=== PATIENT | male | born 1965 | race Caucasian/White ===

== ENCOUNTER 2017-12-17 16:21 | Emergency (ER) | payer OTHER ==
--- NOTE | 2017-12-17 17:21 | ED ---
Extremity Problem HPI - General Chief complaint: Extremity Problem,Nontraumatic Stated complaint: elbow pain Time Seen by Provider: 12/17/17 16:57 Source: patient Mode of arrival: ambulatory Limitations: no limitations - History of Present Illness Initial comments: Patient is a 51-year-old male presents with chief complaint of right elbow pain. The patient states that 2 days ago he was diagnosed with cellulitis of the elbow and was started on Augmentin. Patient states that over the last 2 days the affected area has gotten bigger. The patient denies any pain with moving his elbow. The patient cannot identify any inciting incident to cause a cellulitis, there are no aggravating or alleviating factors. Timing is constant. The patient denies any fever or chills. 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 - Related Data Home Medications Medication Instructions Recorded Confirmed Amoxicillin/Potassium Clav 1 tab PO Q12HR 12/17/17 12/17/17 [Augmentin 875-125 Tablet] Previous Rx's Medication Instructions Recorded Sulfamethox-Tmp 800-160Mg [Bactrim 1 tab PO Q12HR 7 Days #14 tab 12/17/17 DS 800-160 mg] Allergies Allergy/AdvReac Type Severity Reaction Status Date / Time Penicillins Allergy Rash/Hives Verified 12/17/17 17:48 Review of Systems ROS Statement: Those systems with pertinent positive or pertinent negative responses have been documented in the HPI. ROS Other: All systems not noted in ROS Statement are negative. Musculoskeletal: Reports: arthralgia Past Medical History Past Medical History: No Reported History History of Any Multi-Drug Resistant Organisms: None Reported Additional Past Surgical History / Comment(s): rt hand finger amput Past Psychological History: No Psychological Hx Reported Smoking Status: Never smoker Past Alcohol Use History: Occasional Past Drug Use History: None Reported General Exam Limitations: no limitations General appearance: alert, in no apparent distress Head exam: Present: atraumatic, normocephalic Eye exam: Present: normal appearance ENT exam: Present: normal exam Neck exam: Present: normal inspection Respiratory exam: Present: normal lung sounds bilaterally. Absent: respiratory distress, wheezes Cardiovascular Exam: Present: regular rate, normal rhythm GI/Abdominal exam: Present: soft. Absent: distended, tenderness Rectal exam: Present: deferred Extremities exam: Present: other (patient has cellulitis overlying the right elbow. there is no obvious effusion of the elbow, patient is able to move the elbow without pain. ) Back exam: Present: normal inspection Neurological exam: Present: alert, oriented X3 Psychiatric exam: Present: normal affect, normal mood Skin exam: Present: warm, dry, intact Course Vital Signs 12/17/17 16:29 Temperature 97.6 F Pulse Rate 78 Respiratory 18 Rate Blood Pressure 153/89 O2 Sat by Pulse 97 Oximetry Medical Decision Making - Medical Decision Making Patient presents with a chief complaint of cellulitis of the right elbow. On initial evaluation, vital signs are stable, patient is in no acute distress. Patient currently on augmentin for 2 days, I believe this antibiotic to be inadequate to treat his cellulitis given that it does not have resistent staph coverage. Patient was given a dose of vancomycin in the emergency department. I had a very lengthy discussion with the patient regarding treatment options, admission for IV antibiotics vs. changing his current antibiotic to something with broader coverage. at this time, the patient has full range of motion of his elbow, he is able to bare weight on his elbow, and there are no exam findings to provoke concern for septic arthritis. shared decision making was used to determine changing the antibiotic to bactrim BID for 7 days. I expressed to the patient that if the cellulitic area does not improve and progresses past the demarcation line drawn around the cellulitis, he needs to return to the ED immediately for elevation of care. the patient verbalizes understanding and states that he will be re-evaluated in 24-48 hours, sooner if symptoms progress. Patient agreeable with care plan. - Lab Data Result diagrams: 12/17/17 18:30 Lab Results 12/17/17 Range/Units 18:30 WBC 10.3 (3.8-10.6) k/uL RBC 5.32 (4.30-5.90) m/uL Hgb 15.2 (13.0-17.5) gm/dL Hct 43.6 (39.0-53.0) % MCV 82.1 (80.0-100.0) fL MCH 28.6 (25.0-35.0) pg MCHC 34.9 (31.0-37.0) g/dL RDW 14.6 (11.5-15.5) % Plt Count 212 (150-450) k/uL Neutrophils % 68 % Lymphocytes % 22 % Monocytes % 6 % Eosinophils % 3 % Basophils % 1 % Neutrophils # 7.0 (1.3-7.7) k/uL Lymphocytes # 2.2 (1.0-4.8) k/uL Monocytes # 0.6 (0-1.0) k/uL Eosinophils # 0.3 (0-0.7) k/uL Basophils # 0.1 (0-0.2) k/uL Disposition Clinical Impression: Cellulitis of elbow Disposition: HOME SELF-CARE Condition: Good Instructions: Cellulitis (ED) Prescriptions: Sulfamethox-Tmp 800-160Mg [Bactrim DS 800-160 mg] 1 tab PO Q12HR 7 Days #14 tab Is patient prescribed a controlled substance at d/c from ED?: No Referrals: Levon Martinez DO [Primary Care Provider] - 1-2 days
[2017-12-17] MEDS ORDERED: VANCOMYCIN 1,750 MG in SODIUM CHLORIDE 0.9% 250 ML IVPB ONE (17:30)
[2017-12-17 18:41] LABS: Basophils # (A) 0.1 k/uL (0-0.2); Basophils % (A) 1 %; Eosinophils # (A) 0.3 k/uL (0-0.7); Eosinophils % (A) 3 %; HCT 43.6 % (39.0-53.0); HGB 15.2 gm/dL (13.0-17.5); Lymphocytes # (A) 2.2 k/uL (1.0-4.8); Lymphocytes % (A) 22 %; MCH 28.6 pg (25.0-35.0); MCHC 34.9 g/dL (31.0-37.0); MCV 82.1 fL (80.0-100.0); Mean Platelet Volume 7.1; Monocytes # (A) 0.6 k/uL (0-1.0); Monocytes % (A) 6 %; Neutrophils % (A) 68 %; Platelet Count 212 k/uL (150-450); RBC 5.32 m/uL (4.30-5.90); RDW 14.6 % (11.5-15.5); WBC 10.3 k/uL (3.8-10.6)
[2017-12-17 18:49] LABS: Anion Gap 12 mmol/L; Blood Urea Nitrogen 17 mg/dL (9-20); Calcium 9.5 mg/dL (8.4-10.2); Carbon Dioxide 25 mmol/L (22-30); Chloride 105 mmol/L (98-107); Glucose 89 mg/dL (74-99); Potassium 4.2 mmol/L (3.5-5.1); Sodium 142 mmol/L (137-145)
[2017-12-17 20:42] VITALS: PULSE 73; RESP 14; TEMP 97.8
[2017-12-17 20:44] VITALS: BP 167/92
== END 2017-12-17 20:45 | disposition home or self-care (01) ==
LOC: EC 16:21
DX: L03.113 Cellulitis of right upper limb (principal); Z88.0 Allergy status to penicillin
CPT/HCPCS: 99283; 96365; 96366; 36415; 80048; 85025; 87040; J3370

== ENCOUNTER 2019-05-21 16:36 | Emergency (ER) | payer OTHER ==
[2019-05-21 16:48] VITALS: BP 152/83; PULSE 67; RESP 20; TEMP 97.8
[2019-05-21] MEDS ORDERED: PROPARACAINE 0.5% OPHTH DROPS 15 ML BTL RIGHT EYE STA (17:02)
--- NOTE | 2019-05-21 17:07 | ED ---
Eye Problem HPI - General Chief complaint: Eye Problems Stated complaint: [facility] - foreign body rt eye Time Seen by Provider: 05/21/19 16:52 Source: patient Mode of arrival: ambulatory Limitations: no limitations - History of Present Illness Initial comments: Patient is a 53-year-old male presenting to emergency Department with complaints of a foreign body in his right eye that happened at work today. Patient states he was wearing safety glasses but a piece of brass went into his right eye. Patient states he can feel it in the lateral corner of right eye. Patient states he did try flushing his right eye but the piece remained. Patient denies any severe eye pain, blurry vision, black spots in his field of vision. Patient has no other complaints at this time. Upon arrival to ER, vital signs are stable. - Related Data Home Medications Medication Instructions Recorded Confirmed Amoxicillin/Potassium Clav 1 tab PO Q12HR 12/17/17 12/17/17 [Augmentin 875-125 Tablet] Previous Rx's Medication Instructions Recorded Sulfamethox-Tmp 800-160Mg [Bactrim 1 tab PO Q12HR 7 Days #14 tab 12/17/17 DS 800-160 mg] Erythromycin Ophth Oint [Romycin 1 applic RIGHT EYE QID 5 Days #1 gm 05/21/19 Ophth Oint] Allergies Allergy/AdvReac Type Severity Reaction Status Date / Time Penicillins Allergy Rash/Hives Verified 05/21/19 16:47 Review of Systems ROS Statement: Those systems with pertinent positive or pertinent negative responses have been documented in the HPI. ROS Other: All systems not noted in ROS Statement are negative. Past Medical History Past Medical History: No Reported History History of Any Multi-Drug Resistant Organisms: None Reported Additional Past Surgical History / Comment(s): rt hand finger amput Past Psychological History: No Psychological Hx Reported Smoking Status: Never smoker Past Alcohol Use History: Occasional Past Drug Use History: None Reported General Exam - General Exam Comments Initial Comments: GENERAL: Well-appearing, well-nourished and in no acute distress. HEAD: Atraumatic, normocephalic. EYES: Pupils equal round and reactive to light, extraocular movements intact, sclera anicteric, conjunctiva are normal. Foreign body noted and the lateral corner of the right eye. Foreign object was removed without incident with a sterile Q- tip. Small lateral corneal abrasion. ENT: Moist mucous membranes. LUNGS: Breath sounds clear to auscultation bilaterally and equal. No wheezes rales or rhonchi. HEART: Regular rate and rhythm without murmurs, rubs or gallops. ABDOMEN: Soft, nontender, normoactive bowel sounds. EXTREMITIES: Normal range of motion, no pitting or edema. No clubbing or cyanosis. NEUROLOGICAL: Cranial nerves II through XII grossly intact. PSYCH: Normal mood, normal affect. SKIN: Warm, Dry, normal turgor, no rashes or lesions noted. Limitations: no limitations Course Vital Signs 05/21/19 16:45 Temperature 97.8 F Pulse Rate 67 Respiratory 20 Rate Blood Pressure 152/83 O2 Sat by Pulse 95 Oximetry Medical Decision Making - Medical Decision Making Patient is a 53-year-old male presenting with a foreign object in his right eye happened today at work. On exam patient has a small piece of brass in the lateral corner of his right eye. Patient denies blurry vision. Foreign object was removed with a Q-tip without complications. Patient feels relief. Patient will be started on antibiotic eyedrops for small abrasion. Patient is stable for discharge at this time. Patient will follow-up with ophthalmology if further irritation persists. Case discussed with Dr. Rivera. Disposition Clinical Impression: Foreign body of right eye, Right corneal abrasion Disposition: HOME SELF-CARE Condition: Stable Instructions (If sedation given, give patient instructions): Eye Foreign Body (ED) Additional Instructions: Please return to the Emergency Department if symptoms worsen or any other concerns. Follow-up with ophthalmology if eye pain or blurry vision. Prescriptions: Erythromycin Ophth Oint [Romycin Ophth Oint] 1 applic RIGHT EYE QID 5 Days #1 gm Is patient prescribed a controlled substance at d/c from ED?: No Referrals: Levon Martinez DO [Primary Care Provider] - 1-2 days
== END 2019-05-21 17:42 | disposition home or self-care (01) ==
LOC: EC 16:36
DX: T15.91XA Foreign body on external eye, part unspecified, right eye, initial encounter (principal); S05.01XA Injury of conjunctiva and corneal abrasion without foreign body, right eye, initial encounter; Z88.0 Allergy status to penicillin; Y92.69 Other specified industrial and construction area as the place of occurrence of the external cause; Y99.0 Civilian activity done for income or pay
CPT/HCPCS: 65205; 99283

== ENCOUNTER → 2022-02-09 | Outpatient (CLI) | payer BC ==
--- NOTE | 2022-02-10 07:53 | US ---
EXAMINATION TYPE: US venous doppler duplex LE LT DATE OF EXAM: 02/09/2022 4:57 PM COMPARISON: NONE CLINICAL HISTORY: I73.9 Peripheral vascular disease, M79.605. Pain SIDE PERFORMED: Left TECHNIQUE: The lower extremity deep venous system is examined utilizing real time linear array sonog ralph with graded compression, doppler sonography and color-flow sonography. VESSELS IMAGED: Common Femoral Vein Deep Femoral Vein Greater Saphenous Vein * Femoral Vein Popliteal Vein Small Saphenous Vein * Proximal Calf Veins (* superficial vessels) Left Leg: Negative for DVT IMPRESSION: 1. Left lower extremity ultrasound negative for deep venous thrombosis
== END | disposition home or self-care (01) ==
LOC: RADUSWWP 16:05
PROVIDERS: ATTEND Family Medicine
DX: I73.9 Peripheral vascular disease, unspecified (principal)

== ENCOUNTER → 2022-02-20 | Outpatient (CLI) | payer BC ==
--- NOTE | 2022-02-22 11:34 | US ---
EXAMINATION TYPE: US arterial LE multi level DATE OF EXAM: 02/20/2022 2:57 PM CLINICAL HISTORY: I73.9 PERIHERAL VASCULAR DISEASE. Left leg pain when walking. Doppler Waveforms: Right: Multiphasic Left: Multiphasic Ankle-Brachial Indices: Right: 0.9 Left: 0.5 Toe Brachial Indices: Right: 0.6 Left: 0.3 IMPRESSION: 1. Abnormal bilateral RAMA and TBI greater on the left suggestive of significant diffuse atherosclerot ic disease.
== END | disposition home or self-care (01) ==
LOC: RADUSWWP 13:16
PROVIDERS: ATTEND Family Medicine
DX: I73.9 Peripheral vascular disease, unspecified (principal)
CPT/HCPCS: 93923

== ENCOUNTER 2022-11-18 11:21 | Inpatient (IN) | payer BC ==
[2022-11-18] MEDS ORDERED: HEPARIN SODIUM 1,000 UN/ML (10ML VL) IV ONE ×2 (11:25→11:55)
[2022-11-18] MEDS ORDERED: SODIUM CHLORIDE 0.9% 1,000 ML IV STA (11:25)
[2022-11-18] MEDS ORDERED: fentaNYL (PF) 50 MCG/ML 2 ML AMP ONE (11:31)
--- NOTE | 2022-11-18 11:34 | ED ---
General Adult HPI - General Stated complaint: chest pain Time Seen by Provider: 11/18/22 11:21 Source: patient, RN notes reviewed, old records reviewed - History of Present Illness Initial comments: This a 56-year-old male who has a significant family history for heart disease he also has high cholesterol. Patient states he was outside working in the lawn when he started having significant chest pain. This occurred about 35-45 minutes prior to arrival. EMS gave the patient 2 nitroglycerin in route and fentanyl and it did not help with the pain. Patient significant ST segment elevation in route per EMS and he had a EKG to verify this. Patient also states she short of breath and diaphoretic and mildly nauseated. Patient denies any previous history of similar. Patient is not a diabetic does not smoke and denies high blood pressure. Patient denies any back pain but states the pain does radiate to his left arm. - Related Data Home Medications Medication Instructions Recorded Confirmed Amoxicillin/Potassium Clav 1 tab PO Q12HR 12/17/17 12/17/17 [Augmentin 875-125 Tablet] Previous Rx's Medication Instructions Recorded Sulfamethox-Tmp 800-160Mg [Bactrim 1 tab PO Q12HR 7 Days #14 tab 12/17/17 DS 800-160 mg] Erythromycin Ophth Oint [Romycin 1 applic RIGHT EYE QID 5 Days #1 gm 05/21/19 Ophth Oint] Allergies Allergy/AdvReac Type Severity Reaction Status Date / Time Penicillins Allergy Rash/Hives Verified 05/21/19 16:47 Review of Systems ROS Statement: Those systems with pertinent positive or pertinent negative responses have been documented in the HPI. ROS Other: All systems not noted in ROS Statement are negative. Past Medical History Past Medical History: No Reported History History of Any Multi-Drug Resistant Organisms: None Reported Additional Past Surgical History / Comment(s): rt hand finger amput Past Psychological History: No Psychological Hx Reported Past Alcohol Use History: Occasional Past Drug Use History: None Reported General Exam - General Exam Comments Initial Comments: GENERAL: Patient is well-developed and well-nourished. Patient is nontoxic and well- hydrated and is in moderate distress. ENT: Neck is soft and supple. No significant lymphadenopathy is noted. Oropharynx is clear. Moist mucous membranes. Neck has full range of motion without eliciting any pain. EYES: The sclera were anicteric and conjunctiva were pink and moist. Extraocular move ments were intact and pupils were equal round and reactive to light. Eyelids were unremarkable. PULMONARY: Unlabored respirations. Good breath sounds bilaterally. No audible rales rhonchi or wheezing was noted. CARDIOVASCULAR: There is a regular rate and rhythm without any murmurs gallops or rubs. ABDOMEN: Soft and nontender with normal bowel sounds. SKIN: Skin is clear with no lesions or rashes and otherwise unremarkable. NEUROLOGIC: Patient is alert and oriented x3. Cranial nerves II through XII are grossly intact. Motor and sensory are also intact. Normal speech, volume and content. Symmetrical smile. MUSCULOSKELETAL: Normal extremities with adequate strength and full range of motion. LYMPHATICS: No significant lymphadenopathy is noted PSYCHIATRIC: Normal psychiatric evaluation. Medical Decision Making - Medical Decision Making EKG was interpreted by myself and shows a 73 bpm HI interval 265 QRS is 92 QT in terval 396 QTC is 421 per patient's EKG shows significant ST segment elevation in II, III, and F aVF. Was pt. sent in by a medical professional or institution (, PA, [employer], urgent c are, hospital, or intermediate...) When possible be specific @ -[No] Did you speak to anyone other than the patient for history (EMS, parent, family, police, friend...)? What history was obtained from this source @ -EMS gave most of the history Did you review nursing and triage notes (agree or disagree)? Why? @ -[I reviewed and agree with nursing and triage notes] Were old charts reviewed (outside hosp., previous admission, EMS record, old EKG, old radiological studies, urgent care reports/EKG's, intermediate records)? Report findings @ -[No old charts were reviewed] Differential Diagnosis (chest pain, altered mental status, abdominal pain women, abdominal pain men, vaginal bleeding, weakness, fever, dyspnea, syncope, headache, dizziness, GI bleed, back pain, seizure, CVA, palpatations, mental health, musculoskeletal)? @ -Differential Chest Pain: Stable Angina, Unstable Angina, STEMI, NSTEMI Aortic Dissection, Pneumothorax, Musculoskeletal, Esophageal Spasm GERD, Cholecystitis, Pancreatitis, Zoster, this is not meant to be an all-inclusive list. EKG interpreted by me (3pts min.). @ -[As above] X-rays interpreted by me (1pt min.). @ -6 was interpreted by myself shows no acute abnormality. CT interpreted by me (1pt min.). @ -[None done] U/S interpreted by me (1pt. min.). @ -[None done] What testing was considered but not performed or refused? (CT, X-rays, U/S, labs)? Why? @ -[None] What meds were considered but not given or refused? Why? @ -[None] Did you discuss the management of the patient with other professionals (professionals i.e. DrRuben, PA, [employer], lab, RT, psych nurse, health and social care teacher, manager supply chain, teacher, customer service security officer, top case assembler)? Give summary @ -I spoke with Dr. Billy upon the patient's arrival and he agreed to take the patient to the catheterization lab. Was smoking cessation discussed for >3mins.? @ -[No] Was critical care preformed (if so, how long)? @ -35 minutes Were there social determinants of health that impacted care today? How? (Homelessness, low income, unemployed, alcoholism, drug addiction, tra nsportation, low edu. Level, literacy, decrease access to med. care, longterm, rehab)? @ -[No] Was there de-escalation of care discussed even if they declined (Discuss DNR or withdrawal of care, Hospice)? DNR status @ -[No] What co-morbidities impacted this encounter? (DM, HTN, Smoking, COPD, CAD, Cancer, CVA, ARF, Chemo, Hep., AIDS, mental health diagnosis, sleep apnea, morbid obesity)? @ -[None] Was patient admitted / discharged? Hospital course, mention meds given and route, prescriptions, significant lab abnormalities, going to OR and other pertinent info. @ -Patient received 2 nitroglycerin and then on awakening as well as aspirin. Patient was given heparin in the emergency department EKG was done and showed significant ST segment elevation Dr. Billy was contacted and the patient will be going up to the catheterization lab Undiagnosed new problem with uncertain prognosis? @ -[No] Drug Therapy requiring intensive monitoring for toxicity (Heparin, Nitro, Insulin, Cardizem)? @ -[No] Were any procedures done? @ -[No] Diagnosis/symptom? @ -STEMI Acute, or Chronic, or Acute on Chronic? @ -Acute Uncomplicated (without systemic symptoms) or Complicated (systemic symptoms)? @ -Complicated Side effects of treatment? @ -[No] Exacerbation, Progression, or Severe Exacerbation? @ -[No] Poses a threat to life or bodily function? How? (Chest pain, [place], [place], pneumonia, PE, COPD, DKA, ARF, appy, cholecystitis, CVA, Diverticulitis, Homicidal, Suicidal, threat to staff... and all critical care pts) @ -Yes this could lead to poor perfusion end organ dysfunction and Critical Care Time Critical Care Time: Yes Total Critical Care Time: 35 Disposition Clinical Impression: STEMI (ST elevation myocardial infarction) Disposition: ADMITTED IP TO THIS HOSP Referrals: Levon Martinez DO [Primary Care Provider] - 1-2 days Time of Disposition: 11:33
--- NOTE | 2022-11-18 11:43 | XR ---
EXAMINATION TYPE: XR chest 1V portable DATE OF EXAM: 11/18/2022 11:37 AM COMPARISON: None TECHNIQUE: XR chest 1V portable Frontal view of the chest. CLINICAL INDICATION:Male, 56 years old with history of chest pain; FINDINGS: Lungs/Pleura: Low lung volumes are present. There is no evidence of pleural effusion, focal consolida tion, or pneumothorax. Pulmonary vascularity: Unremarkable. Heart/mediastinum: Cardiomediastinal silhouette is unremarkable. Musculoskeletal: No acute osseous pathology. IMPRESSION: Low lung volumes with a generalized hazy appearance which could represent atelectasis versus pulmonar y edema correlate with serum BNP.
[2022-11-18 11:46] LABS: Basophils # (A) 0.1 k/uL (0-0.2); Basophils % (A) 1 %; Eosinophils # (A) 0.2 k/uL (0-0.7); Eosinophils % (A) 2 %; HCT 44.5 % (39.0-53.0); HGB 14.7 gm/dL (13.0-17.5); Lymphocytes % (A) 31 %; MCH 28.1 pg (25.0-35.0); MCHC 33.1 g/dL (31.0-37.0); Mean Platelet Volume 8.1; Monocytes # (A) 0.6 k/uL (0-1.0); Monocytes % (A) 5 %; Neutrophils # (A) 7.8 k/uL (1.3-7.7); Neutrophils % (A) 60 %; Platelet Count 286 k/uL (150-450); RBC 5.23 m/uL (4.30-5.90); RDW 14.3 % (11.5-15.5)
[2022-11-18] MEDS ORDERED: LIDOCAINE 1% INJ 10MG/ML (5 ML VIAL-PF) SQ ONE (11:47)
[2022-11-18] MEDS ORDERED: SODIUM CHLORIDE 0.9% 1,000 ML IV ONE (11:53)
[2022-11-18] MEDS ORDERED: VERAPAMIL SYRINGE (5 MG/10 ML) INTRAARTER ONE (11:53)
[2022-11-18] MEDS ORDERED: MIDAZOLAM 2 MG/2 ML VIAL IV ONE (11:53)
[2022-11-18] MEDS ORDERED: fentaNYL (PF) 50 MCG/ML 2 ML AMP IV ONE (11:53)
[2022-11-18 11:56] LABS: ALT 29 U/L (4-49); AST 27 U/L (17-59); African American GFR (CKD) >90 (>60 ml/min/1.73 sqM); Albumin 4.1 g/dL (3.5-5.0); Alkaline Phosphatase 82 U/L (38-126); Anion Gap 11 mmol/L; Blood Urea Nitrogen 13 mg/dL (9-20); Calcium 8.8 mg/dL (8.4-10.2); Carbon Dioxide 23 mmol/L (22-30); Chloride 104 mmol/L (98-107); Glucose 124 mg/dL (74-99); Magnesium 1.8 mg/dL (1.6-2.3); Non-African American GFR(CKD) >90 (>60 ml/min/1.73 sqM); Potassium 3.9 mmol/L (3.5-5.1); Sodium 138 mmol/L (137-145); Total Bilirubin 0.6 mg/dL (0.2-1.3); Total Protein 6.7 g/dL (6.3-8.2)
[2022-11-18] MEDS ORDERED: TICAGRELOR 90 MG TAB ONE (11:57)
[2022-11-18] MEDS ORDERED: TICAGRELOR 90 MG TAB PO ONE (11:58)
[2022-11-18 12:29] LABS: Partial Thromboplastin Time 41.1 sec (22.0-30.0); Prothrombin Time 10.8 sec (9.0-12.0)
[2022-11-18] MEDS ORDERED: IOPAMIDOL-370 200ML BTL INJ ONE (12:33)
[2022-11-18] MEDS ORDERED: RX INFO: IV CONTRAST WAS GIVEN 1 EACH MISC MISCELLANE PRN (12:47)
[2022-11-18] MEDS ORDERED: MAG HYDROX/AL HYDROX/SIMETH 30 ML CUP PO PRN (12:47)
[2022-11-18] MEDS ORDERED: NITROGLYCERIN SL TABS 0.4 MG TAB SUBLINGUAL PRN (12:47)
[2022-11-18] MEDS ORDERED: ATROPINE SULFATE 0.1 MG/ML 10ML SYRINGE IV PRN (12:47)
[2022-11-18] MEDS ORDERED: ZOLPIDEM 5 MG TAB PO PRN (12:47)
--- NOTE | 2022-11-18 12:54 | P.CRDCN ---
History of Present Illness Consult date: 11/18/22 History of present illness: History of Present Illness: The patient is a 56-year-old male with known history of hyperlipidemia, not treated, history of chronic tobacco use, peripheral vascular disease who presented with an acute chest discomfort and on presentation to the emergency room he was found to have evidence of acute inferior wall myocardial infarction. According to the patient he is active physically and has no exertional chest discomfort or significant dyspnea. He denies any dizziness, palpitations or syncope. He has no PND, orthopnea or peripheral edema. His Rey factors are positive for chronic tobacco use, hyperlipidemia and peripheral vascular disease. His initial troponin was 0.025 and his EKG showed ST segment elevation inferiorly. Medications: Vitamins Review of Systems: Respiratory: Has a history of chronic tobacco use but denies any significant wheezing or cough GI: No nausea or vomiting . No history of peptic ulcer disease. No recent GI bleed. : No hematuria or dysuria. Nervous System: No stroke or seizure. Physical Examination: 56-year-old male, alert in moderate to severe discomfort, evaluated in the cardiac catheterization laboratory,Blood pressure 110/70, Heart rate 90 Head: Normocephalic. Eyes: Sclerae nonicteric. Neck: Good carotid upstroke, no bruit, no jugular venous distention. Lungs: Clear to auscultation. Heart: Regular rate and rhythm, S1-S2, no S3, no rub. No murmur. Abdomen: Soft nontender, positive bowel sounds no organomegaly. Extremities: No edema, intact distal pulses. Labs: WBC 13,000, potassium 3.9, BUN 13, creatinine 0.91. Troponin 0.025 EKG: Sinus mechanism with ST elevation inferiorly consistent with acute inferior wall myocardial infarction with ST segment depression in the lateral leads and mild ST elevation in V4 to V6 Impression: 1. Acute inferolateral myocardial infarction 2. Chronic tobacco use 3. Hyperlipidemia 4. Peripheral vascular disease Plan: 1. I have recommended to proceed with emergent cardiac catheterization, the risks and the complications were discussed with the patient who was in agreement to proceed 2. Obtain an echocardiogram with Doppler 3. Smoking cessation 4. Initiate statin 5. Thank you for this consult we will follow with you Past Medical History Past Medical History: No Reported History History of Any Multi-Drug Resistant Organisms: None Reported Additional Past Surgical History / Comment(s): rt hand finger amput Past Psychological History: No Psychological Hx Reported Past Alcohol Use History: Occasional Past Drug Use History: None Reported Medications and Allergies Home Medications Medication Instructions Recorded Confirmed Type Amoxicillin/Potassium Clav 1 tab PO Q12HR 12/17/17 12/17/17 History [Augmentin 875-125 Tablet] Sulfamethox-Tmp 800-160Mg [Bactrim 1 tab PO Q12HR 7 Days #14 tab 12/17/17 Rx DS 800-160 mg] Erythromycin Ophth Oint [Romycin 1 applic RIGHT EYE QID 5 Days #1 gm 05/21/19 Rx Ophth Oint] Allergies Allergy/AdvReac Type Severity Reaction Status Date / Time Penicillins Allergy Rash/Hives Verified 05/21/19 16:47 Physical Exam Vitals: Vital Signs Temp Pulse Resp BP Pulse Ox 11/18/22 11:40 99 18 103/80 95 11/18/22 11:21 98.2 F 99 20 96/67 94 L Intake and Output 11/17/22 11/18/22 11/18/22 22:59 06:59 14:59 Intake Total 900 Balance 900 Intake: IV 900 Other: Weight 108.862 kg Results 11/18/22 11:32 11/18/22 11:32 Cardiac Enzymes 11/18/22 11/18/22 Range/Units 11:32 11:32 AST 27 (17-59) U/L Troponin I 0.025 (0.000-0.034) ng/mL Coagulation 11/18/22 Range/Units 11:32 PT 10.8 (9.0-12.0) sec APTT 41.1 H (22.0-30.0) sec CBC 11/18/22 Range/Units 11:32 WBC 13.0 H (3.8-10.6) k/uL RBC 5.23 (4.30-5.90) m/uL Hgb 14.7 (13.0-17.5) gm/dL Hct 44.5 (39.0-53.0) % Plt Count 286 (150-450) k/uL Comprehensive Metabolic Panel 11/18/22 Range/Units 11:32 Sodium 138 (137-145) mmol/L Potassium 3.9 (3.5-5.1) mmol/L Chloride 104 (98-107) mmol/L Carbon Dioxide 23 (22-30) mmol/L BUN 13 (9-20) mg/dL Creatinine 0.91 (0.66-1.25) mg/dL Glucose 124 H (74-99) mg/dL Calcium 8.8 (8.4-10.2) mg/dL AST 27 (17-59) U/L ALT 29 (4-49) U/L Alkaline Phosphatase 82 (38-126) U/L Total Protein 6.7 (6.3-8.2) g/dL Albumin 4.1 (3.5-5.0) g/dL Current Medications Generic Name Dose Route Start Last Admin Trade Name Freq PRN Reason Stop Dose Admin Al Hydroxide/Mg Hydroxide 30 ml 11/18/22 12:47 Mag Hydrox/Al Hydrox/Simeth 30 Ml Cup PO Q4HR PRN Heartburn Aspirin 81 mg 11/19/22 09:00 Aspirin 81 Mg PO DAILY [facility] Atorvastatin Calcium 80 mg 11/18/22 21:00 Atorvastatin 80 Mg Tab PO HS [facility] Atropine Sulfate 0.5 mg 11/18/22 12:47 Atropine Sulfate 0.1 Mg/Ml 10ml Syringe IV ONCE PRN Symptomatic Bradycardia Sodium Chloride 1,000 ml/ IV 1,000 mls @ 108.862 mls/hr 11/18/22 13:00 Solution IV 11/18/22 17:01 .Q9H12M DIVYA 1 ML/KG/HR Metoprolol Tartrate 25 mg 11/18/22 13:00 Metoprolol Tartrate 25 Mg Tab PO BID [facility] Miscellaneous Information 1 each 11/18/22 12:47 Rx Info: Iv Contrast Was Given 1 Each Misc MISCELLANE 11/20/22 12:47 DAILY PRN Per Protocol Nitroglycerin 0.4 mg 11/18/22 12:47 Nitroglycerin Sl Tabs 0.4 Mg Tab SUBLINGUAL Q5M PRN Chest Pain Ticagrelor 90 mg 11/18/22 21:00 Ticagrelor 90 Mg Tab PO BID [facility] Protocol Zolpidem Tartrate 5 mg 11/18/22 12:47 Zolpidem 5 Mg Tab PO HS PRN Insomnia Intake and Output 11/17/22 11/18/22 11/18/22 22:59 06:59 14:59 Intake Total 900 Balance 900 Intake: IV 900 Other: Weight 108.862 kg Patient Weight 11/19/22 06:59 Weight 108.862 kg 11/18/22 11:32 11/18/22 11:32
[2022-11-18] MEDS ORDERED: SODIUM CHLORIDE 0.9% 1,000 ML in EMPTY BAG 1 BAG IV SCH (13:00)
[2022-11-18 13:03] LABS: Glucose,Whole Blood 113 mg/dL (70-110)
--- NOTE | 2022-11-18 13:03 | P.CARDCATH ---
Date of Procedure: 11/18/22 Description of Procedure: Cardiac Catheterization: The patient is a 56 old male presented with an acute inferior wall myocardial infarction. Recommendations were made regarding cardiac catheterization, the risks and the complications were discussed with the patient who is in full understanding and agreement. Procedure Description: Patient was brought to [facility] in fasting semi-sedated state after receiving Fentanyl and Benadryl achieiving moderate conscious sedated state. Using Xylocaine Anesthesia and Seldinger technique, a 6-Ukrainian sheath was introduced in the right radial artery . Subsequently, selective coronary angiography was performed using a 6-Ukrainian 4 bend right James guide catheter and 5-Ukrainian 3.5 bend left James catheter. Multiple views of the coronary artery including hemiaxial views were obtained. The 5-Ukrainian pigtail catheter was used to cross the aortic valve and LVEDP was calculated. PCI: After cannulating the right coronary ostium a 0.014 BMW J-wire was advanced with the help of a super cross microcatheter and crossed the total occlusion and positioned distally. After removing this super cross a 2.5 x 12 mm Treck was advanced into inflation at 8 alona were done subsequently the balloon was removed and a 3.5 x 23 mm Xience elizabeth point stent was advanced deployed and dilated at 16 alona. After removing the balloon an Mercantila Eye IVUS catheter was advanced and images were obtained. After removing the catheter 3.5 x 20 mm NC Treck balloon was advanced and one inflation at 10 alona was done. Subsequently the wire was removed and images were obtained and reveal stable successful stenting. Subsequently images of the left cornea system and LVEDP was measured. Following that, catheter and sheath were removed. Hemostasis was obtained with deployment of TR band . There was no immediate complication. Patient was returned to room in stable condition. Of note, the patient received a total of 6000 units of intravenous heparin as well as intra-arterial verapamil. He received an oral loading dose of Brilinta, his ACT was monitored. At the end of the procedure his discomfort resolved and his EKG changes improved. Findings: Left main: This is a short sized vessel, bifurcating into left circumflex and LAD, left main has no high-grade stenosis. LAD: This is a large size vessel, reaching to the apex, the midsegment of the LAD is diffusely diseased with areas of stenosis of 50-60% Left circumflex: This is a large nondominant vessel giving rise to a large pr oximal obtuse marginal branch that has an 80-90% stenosis at the ostium of the left circumflex beyond this morning caliber and gives rise to a second small obtuse marginal branch that has no evidence of high-grade stenosis RCA: This is a dominant vessel totally occluded in the distal segment with no significant antegrade flow Left Ventriculogram: Not performed Hemodynamics: There was no gradient across the aortic valve , LVEDP was 10-15 mmHg Conclusion: 1. Acutely occluded distal RCA 2. Significant disease in OM1 3. Moderate disease in the mid RCA 4. Successful stenting of the distal RCA with reduction of stenosis from 100% to 0% with intravascular ultrasound imaging. Recommendations: The patient will continue on aspirin and Brilinta for 12 months without any interruption in addition to aggressive coronary risk modification. He will be evaluated at a later time for the need to undergo stenting of the obtuse marginal branch. The findings and the recommendations were discussed with the patient and the family and they were in full understanding and agreement. Duration of sedation is 48 minutes.
[2022-11-18] MEDS: METOPROLOL TARTRATE 25 MG TAB PO SCH ×2 (13:18→20:11)
--- NOTE | 2022-11-18 13:43 | P.HPIM ---
History of Present Illness H&P Date: 11/18/22 History of present illness; patient is a 56-year-old gentleman with past medical history significant for hyperlipidemia who presented to the ER for chest pain. Patient stated that he was all right this morning when he started having severe chest pain, while he was working in the lawn. Chest pain was central in location, nonradiating. It was associated with shortness of breath and diaphoresis. EMS was called immediately and patient received [address] to the ER. Patient was worked up in the ER, initial lab work showed WBC 13, hemoglobin 14.7, sodium 138, potassium 3.9, BUN 13, creatinine 0.91. EKG done showed ST elevation in leads 2, 3 and aVF. ER called interventional cardiology for ST elevation changes in inferior leads. Patient underwent cardiac cath showing acutely occluded distal RCA, Significant disease in OM1, Moderate disease in the mid RCA , patient underwent Successful stenting of the distal RCA with reduction of stenosis from 100% to 0%. Post cath patient was admitted to ICU REVIEW OF SYSTEMS: CONSTITUTIONAL: No fever, no malaise, no fatigue. HEENT: No recent visual problems or hearing problems. Denied any sore throat. CARDIOVASCULAR: As mentioned in HPI PULMONARY: no cough, no hemoptysis. GASTROINTESTINAL: No diarrhea, no nausea, no vomiting, no abdominal pain. NEUROLOGICAL: No headaches, no weakness, no numbness. HEMATOLOGICAL: Denies any bleeding or petechiae. GENITOURINARY: Denies any burning micturition, frequency, or urgency. MUSCULOSKELETAL/RHEUMATOLOGICAL: Denies any joint pain, swelling, or any muscle pain. ENDOCRINE: Denies any polyuria or polydipsia. The rest of the 14-point review of systems is negative. PHYSICAL EXAMINATION: GENERAL: The patient is alert and oriented x3, not in any acute distress. Well developed, well nourished. HEENT: Pupils are round and equally reacting to light. EOMI. No scleral icterus. No conjunctival pallor. Normocephalic, atraumatic. No pharyngeal erythema. No t hyromegaly. CARDIOVASCULAR: S1 and S2 present. No murmurs, rubs, or gallops. PULMONARY: Chest is clear to auscultation, no wheezing or crackles. ABDOMEN: Soft, nontender, nondistended, normoactive bowel sounds. No palpable organomegaly. MUSCULOSKELETAL: No joint swelling or deformity. EXTREMITIES: No cyanosis, clubbing, or pedal edema. NEUROLOGICAL: Gross neurological examination did not reveal any focal deficits. SKIN: No rashes. Assessment and plan Acute ST elevation [place] Hyperlipidemia Plan; Monitor vital signs Monitor CBC Monitor CMP Continue telemetry monitoring Continue postcath Cardiac care per protocol Status post Successful stenting of the distal RCA with reduction of stenosis from 100% to 0%. Continue aspirin and brilinta Lipid panel ordered. 2-D echo ordered Follow-up on cardiology recommendation Past Medical History Past Medical History: No Reported History History of Any Multi-Drug Resistant Organisms: None Reported Additional Past Surgical History / Comment(s): rt hand finger amput Past Psychological History: No Psychological Hx Reported Past Alcohol Use History: Occasional Past Drug Use History: None Reported Medications and Allergies Home Medications Medication Instructions Recorded Confirmed Type Amoxicillin/Potassium Clav 1 tab PO Q12HR 12/17/17 12/17/17 History [Augmentin 875-125 Tablet] Sulfamethox-Tmp 800-160Mg [Bactrim 1 tab PO Q12HR 7 Days #14 tab 12/17/17 Rx DS 800-160 mg] Erythromycin Ophth Oint [Romycin 1 applic RIGHT EYE QID 5 Days #1 gm 05/21/19 Rx Ophth Oint] Allergies Allergy/AdvReac Type Severity Reaction Status Date / Time Penicillins Allergy Rash/Hives Verified 05/21/19 16:47 Physical Exam Vitals: Vital Signs Temp Pulse Resp BP Pulse Ox 11/18/22 13:10 97.6 F 93 22 137/77 93 L 11/18/22 13:01 21 11/18/22 11:40 99 18 103/80 95 11/18/22 11:21 98.2 F 99 20 96/67 94 L Intake and Output 11/17/22 11/18/22 11/18/22 22:59 06:59 14:59 Intake Total 900 Output Total 0 Balance 900 Intake: IV 900 Output: Urine 0 Other: # Voids 0 Weight 108.862 kg Results CBC & Chem 7: 11/18/22 11:32 11/18/22 11:32 Labs: Abnormal Lab Results - Last 24 Hours (Table) 11/18/22 11/18/22 11/18/22 Range/Units 11:32 11:32 11:32 WBC 13.0 H (3.8-10.6) k/uL Neutrophils # 7.8 H (1.3-7.7) k/uL APTT 41.1 H (22.0-30.0) sec Glucose 124 H (74-99) mg/dL POC Glucose (mg/dL) (70-110) mg/dL 11/18/22 Range/Units 13:02 WBC (3.8-10.6) k/uL Neutrophils # (1.3-7.7) k/uL APTT (22.0-30.0) sec Glucose (74-99) mg/dL POC Glucose (mg/dL) 113 H (70-110) mg/dL
[2022-11-18 13:51] VITALS: BMI 32.5
--- NOTE | 2022-11-18 16:17 | CA ---
Transthoracic Echo Report Name: Kieran Saini Age: 56 Gender: M : 1965 Exam Date: 11/18/2022 13:55 Exam Location: [facility] Ht (in): 72 Wt (lb): 240 Ordering Physician: Suly Billy MD ([id number]) Attending/Referring Phys: [employer] Celia Burdick RDCS Procedure CPT: Indications: IN Cardiac Hx: 1 stent Technical Quality: Fair Contrast 1: Total Dose (mL): Contrast 2: Total Dose (mL): MEASUREMENTS (Male / Female) Normal Values 2D ECHO LV Diastolic Diameter PLAX 5.5 cm 4.2 - 5.9 / 3.9 - 5.3 cm LV Systolic Diameter PLAX 3.4 cm IVS Diastolic Thickness 1.2 cm 0.6 - 1.0 / 0.6 - 0.9 cm LVPW Diastolic Thickness 1.1 cm 0.6 - 1.0 / 0.6 - 0.9 cm LV Relative Wall Thickness 0.4 RV Internal Dim ED PLAX 3.7 cm LA Systolic Diameter LX 3.9 cm 3.0 - 4.0 / 2.7 - 3.8 cm LV Diastolic Volume MOD BP 103.7 cm??? 67 - 155 / 56 - 104 cm??? LV Systolic Volume MOD BP 64.2 cm??? 22 - 58 / 19 - 49 cm??? LV Ejection Fraction MOD BP 38.1 % >= 55 % LV Diastolic Volume MOD 4C 117.0 cm??? LV Systolic Volume MOD 4C 69.8 cm??? LV Ejection Fraction MOD 4C 40.4 % LV Diastolic Length 4C 8.3 cm LV Systolic Length 4C 7.4 cm LV Diastolic Volume MOD 2C 92.4 cm??? LV Systolic Volume MOD 2C 56.6 cm??? LV Ejection Fraction MOD 2C 38.7 % LV Diastolic Length 2C 8.3 cm LV Systolic Length 2C 7.7 cm LA Volume 57.9 cm??? 18 - 58 / 22 - 52 cm??? M-MODE Aortic Root Diameter MM 3.4 cm MV E Point Septal Separation 1.0 cm AV Cusp Separation MM 2.4 cm DOPPLER AV Peak Velocity 166.4 cm/s AV Peak Gradient 11.1 mmHg MV Area PHT 3.9 cm??? Mitral E Point Velocity 105.2 cm/s Mitral A Point Velocity 127.1 cm/s Mitral E to A Ratio 0.8 MV Deceleration Time 194.1 ms MV E' Velocity 5.3 cm/s Mitral E to MV E' Ratio 19.7 FINDINGS Left Ventricle Left ventricular ejection fraction is estimated at 40-45 %. Mildly increased septal wall thickness. Mildly increased left ventricular systolic volume. Moderately decreased left ventricular ejection fraction.left ventricular cavity size normal. Inferior and inferoseptal hypokinesis Right Ventricle Mild right ventricular dilatation. Unable to estimate the right ventricular systolic pressure. Right Atrium Normal right atrial size. Left Atrium Mildly increased left atrial area. Mitral Valve Structurally normal mitral valve. No mitral stenosis, or prolapse.mild mitral regurgitation. Aortic Valve Trileaflet aortic valve. No aortic valve stenosis or regurgitation. Tricuspid Valve Structurally normal tricuspid valve. No tricuspid stenosis, regurgitation or prolapse. Pulmonic Valve Pulmonic valve not well visualized. Pericardium Normal pericardium. No pericardial effusion. Aorta Normal size aortic root and proximal ascending aorta. CONCLUSIONS 1. Moderately impaired left ventricle systolic function with segmental wall motion abnormality consistent with CAD 2. Mild mitral regurgitation Previewed by: Dr. Suly Billy MD (Electronically Signed) Final Date: 18 Nov 2022 16:16
[2022-11-18] MEDS: ATORVASTATIN 80 MG TAB PO SCH (20:11)
[2022-11-18] MEDS: TICAGRELOR 90 MG TAB PO SCH (20:11)
[2022-11-18 22:54] LABS: Chol/HDL Ratio 6.46 Ratio; LDL Cholesterol,Calculated 176.2 mg/dL (0.0-131.0); VLDL Calculation 12.28 mg/dL (5.00-40.00)
[2022-11-19] MEDS: ACETAMINOPHEN TAB 325 MG TAB PO PRN ×2 (01:24→20:21)
[2022-11-19] MEDS: TICAGRELOR 90 MG TAB PO SCH ×2 (08:25→20:21)
[2022-11-19] MEDS: METOPROLOL TARTRATE 25 MG TAB PO SCH ×2 (08:25→20:21)
[2022-11-19] MEDS: MULTIVITAMINS, THERA 1 EACH TAB PO SCH (08:25)
[2022-11-19] MEDS: ASPIRIN 81 MG PO SCH (08:25)
[2022-11-19 08:26] LABS: African American GFR (CKD) >90 (>60 ml/min/1.73 sqM); Anion Gap 7 mmol/L; Blood Urea Nitrogen 12 mg/dL (9-20); Calcium 8.7 mg/dL (8.4-10.2); Carbon Dioxide 26 mmol/L (22-30); Chloride 108 mmol/L (98-107); Glucose 134 mg/dL (74-99); Non-African American GFR(CKD) >90 (>60 ml/min/1.73 sqM); Potassium 4.2 mmol/L (3.5-5.1); Sodium 141 mmol/L (137-145)
--- NOTE | 2022-11-19 09:31 | P.PN ---
Subjective Progress Note Date: 11/19/22 PROGRESS NOTE The patient is a 56-year-old male with a known history of chronic tobacco use, hyperlipidemia and PAD who presented with an acute inferior wall myocardial infarction, underwent cardiac catheterization and was found to have occluded distal RCA and underwent stenting of that vessel. He is doing well this morning, he denies any chest discomfort, dizziness or palpitations. Hemodynamically he is stable. In the past he had issues with statin but was started on atorvastatin yesterday. He had an echocardiogram that showed an ejection fraction of 40-45% with inferior and inferoseptal hypokinesis and mild mitral regurgitation. His peak troponin is 1.68, his LDL 176 Medications: Aspirin, Lipitor 80 mg daily, metoprolol 25 mg twice a day, Brilinta 90 mg twice a day PHYSICAL EXAMINATION: Blood pressure 125/60 heart rate 70 LUNGS: Clear to auscultation HEART: Regular rate and rhythm, S1, S2. No S3. No systolic murmur ABDOMEN: Soft, nontender, no organomegaly EXTREMETIES: No edema, right radial pulse intact, amputation of the digit on the right side, chronic LAB: Potassium 4.2, BUN 12, creatinine 0.83. EKG was sinus mechanism rate PVCs with biphasic T waves in the inferior leads IMPRESSION: 1. Status post inferior wall myocardial infarction with stenting of the RCA 2. Obstructive disease in the left circumflex 3. Chronic tobacco use 4. Ischemic cardiomyopathy, would expect stunt myocardium in view of the low peak of troponin 5. Hyperlipidemia 6. PAD PLAN: 1. Add [place] inhibitor 2. Increase activity 3. Proceed with stenting of the left circumflex tomorrow 4. Depending on his progress further recommendations will be made Objective - Vital Signs Vital signs: Vital Signs Temp 98.1 F 11/19/22 08:00 Pulse 72 11/19/22 08:00 Resp 18 11/19/22 08:00 BP 125/61 11/19/22 08:00 Pulse Ox 96 11/19/22 08:05 FiO2 Intake & Output 11/18/22 11/19/22 11/19/22 18:59 06:59 18:59 Intake Total 1445 700 Output Total 1900 1275 500 Balance -455 -575 -500 Weight 108.862 kg 107.8 kg Intake: IV 900 Intake, IV Titration 545 Amount Sodium Chloride 0.9% 1, 545 000 ml In Empty Bag 1 bag @ 1 ML/KG/HR 108.862 mls /hr IV .Q9H12M [facility] Rx#: [id number] Oral 700 Output: Urine 1900 1275 500 Other: Voiding Method Urinal Urinal Urinal # Voids 0 0 0 - Labs CBC & Chem 7: 11/18/22 11:32 11/19/22 07:56 Labs: Abnormal Lab Results - Last 24 Hours (Table) 11/18/22 11/18/22 11/18/22 Range/Units 11:32 11:32 11:32 WBC 13.0 H (3.8-10.6) k/uL Neutrophils # 7.8 H (1.3-7.7) k/uL APTT 41.1 H (22.0-30.0) sec Chloride (98-107) mmol/L Glucose 124 H (74-99) mg/dL POC Glucose (mg/dL) (70-110) mg/dL Troponin I (0.000-0.034) ng/mL Cholesterol (0.00-200.00) mg/dL LDL Cholesterol, Calc (0.0-131.0) mg/dL HDL Cholesterol (40.00-60.00) mg/dL 11/18/22 11/18/22 11/18/22 Range/Units 13:00 13:00 13:02 WBC (3.8-10.6) k/uL Neutrophils # (1.3-7.7) k/uL APTT (22.0-30.0) sec Chloride (98-107) mmol/L Glucose (74-99) mg/dL POC Glucose (mg/dL) 113 H (70-110) mg/dL Troponin I 0.084 H* (0.000-0.034) ng/mL Cholesterol 223.00 H (0.00-200.00) mg/dL LDL Cholesterol, Calc 176.2 H (0.0-131.0) mg/dL HDL Cholesterol 34.50 L (40.00-60.00) mg/dL 11/18/22 11/19/22 Range/Units 16:28 07:56 WBC (3.8-10.6) k/uL Neutrophils # (1.3-7.7) k/uL APTT (22.0-30.0) sec Chloride 108 H (98-107) mmol/L Glucose 134 H (74-99) mg/dL POC Glucose (mg/dL) (70-110) mg/dL Troponin I 1.680 H* (0.000-0.034) ng/mL Cholesterol (0.00-200.00) mg/dL LDL Cholesterol, Calc (0.0-131.0) mg/dL HDL Cholesterol (40.00-60.00) mg/dL
[2022-11-19] MEDS ORDERED: ALPRAZolam 0.5 MG TAB PO PRN (09:32)
[2022-11-19] MEDS ORDERED: NITROGLYCERIN SL TABS 0.4 MG TAB SUBLINGUAL PRN (09:32)
[2022-11-19] MEDS ORDERED: ALPRAZolam 0.25 MG TAB PO PRN (09:32)
--- NOTE | 2022-11-19 12:37 | P.PN ---
Subjective Progress Note Date: 11/19/22 patient is a 56-year-old gentleman with past medical history significant for hyperlipidemia who presented to the ER for chest pain. Patient stated that he was all right this morning when he started having severe chest pain, while he was working in the lawn. Chest pain was central in location, nonradiating. It was associated with shortness of breath and diaphoresis. EMS was called immediately and patient received [address] to the ER. Patient was worked up in the ER, initial lab work showed WBC 13, hemoglobin 14.7, sodium 138, potassium 3.9, BUN 13, creatinine 0.91. EKG done showed ST elevation in leads 2, 3 and aVF. ER called interventional cardiology for ST elevation changes in inferior leads. Patient underwent cardiac cath showing acutely occluded distal RCA, Significant disease in OM1, Moderate disease in the mid RCA , patient underwent Successful stenting of the distal RCA with reduction of stenosis from 100% to 0%. Post cath patient was admitted to ICU 11/19. Patient seen and examined. No further episodes of chest pain. Sitting upright in the bed. Labs this morning showed sodium 141, potassium 4.2, BUN 12, creatinine 0.83, total cholesterol 223, LDL 176. Patient states he gets muscle pains with statins, unable to tolerate statins in outpatient setting before REVIEW OF SYSTEMS: CONSTITUTIONAL: No fever, no malaise,. CARDIOVASCULAR: No chest pain, no palpitations, no syncope. PULMONARY: No shortness of breath, no cough, GASTROINTESTINAL: No diarrhea, no nausea, no vomiting, no abdominal pain. NEUROLOGICAL: No headaches, no weakness, PHYSICAL EXAMINATION: GENERAL: The patient is alert and oriented x3, not in any acute distress. Well developed, well nourished. HEENT: Pupils are round and equally reacting to light. EOMI. No scleral icterus. No conjunctival pallor. Normocephalic, atraumatic. No pharyngeal erythema. No thyromegaly. CARDIOVASCULAR: S1 and S2 present. No murmurs, rubs, or gallops. PULMONARY: Chest is clear to auscultation, no wheezing or crackles. ABDOMEN: Soft, nontender, nondistended, normoactive bowel sounds. No palpable organomegaly. MUSCULOSKELETAL: No joint swelling or deformity. EXTREMITIES: No cyanosis, clubbing, or pedal edema. NEUROLOGICAL: Gross neurological examination did not reveal any focal deficits. SKIN: No rashes. Assessment and plan Acute ST elevation [place] Hyperlipidemia Peripheral arterial disease Plan; Monitor vital signs Monitor CBC Monitor CMP Continue telemetry monitoring Status post Successful stenting of the distal RCA on 11/18 Continue aspirin and brilinta echocardiogram showed an ejection fraction of 40-45% with inferior and inferoseptal hypokinesis and mild mitral regurgitation Continue lisinopril and Lopressor Cardiology plan to Proceed with stenting of the left circumflex tomorrow Patient currently on Lipitor, if patient unable to tolerate statins, patient might be a candidate for PCSK9 inhibitors like Repatha Objective - Vital Signs Vital signs: Vital Signs Temp 98.1 F 11/19/22 08:00 Pulse 72 11/19/22 08:00 Resp 18 11/19/22 08:00 BP 125/61 11/19/22 08:00 Pulse Ox 96 11/19/22 08:05 FiO2 Intake & Output 11/18/22 11/19/22 11/19/22 18:59 06:59 18:59 Intake Total 1445 700 Output Total 1900 1275 500 Balance -455 -575 -500 Weight 108.862 kg 107.8 kg Intake: IV 900 Intake, IV Titration 545 Amount Sodium Chloride 0.9% 1, 545 000 ml In Empty Bag 1 bag @ 1 ML/KG/HR 108.862 mls /hr IV .Q9H12M [facility] Rx#: [id number] Oral 700 Output: Urine 1900 1275 500 Other: Voiding Method Urinal Urinal Urinal # Voids 0 0 0 - Labs CBC & Chem 7: 11/18/22 11:32 11/19/22 07:56 Labs: Abnormal Lab Results - Last 24 Hours (Table) 11/18/22 11/18/22 11/18/22 Range/Units 11:32 11:32 11:32 WBC 13.0 H (3.8-10.6) k/uL Neutrophils # 7.8 H (1.3-7.7) k/uL APTT 41.1 H (22.0-30.0) sec Chloride (98-107) mmol/L Glucose 124 H (74-99) mg/dL POC Glucose (mg/dL) (70-110) mg/dL Troponin I (0.000-0.034) ng/mL Cholesterol (0.00-200.00) mg/dL LDL Cholesterol, Calc (0.0-131.0) mg/dL HDL Cholesterol (40.00-60.00) mg/dL 11/18/22 11/18/22 11/18/22 Range/Units 13:00 13:00 13:02 WBC (3.8-10.6) k/uL Neutrophils # (1.3-7.7) k/uL APTT (22.0-30.0) sec Chloride (98-107) mmol/L Glucose (74-99) mg/dL POC Glucose (mg/dL) 113 H (70-110) mg/dL Troponin I 0.084 H* (0.000-0.034) ng/mL Cholesterol 223.00 H (0.00-200.00) mg/dL LDL Cholesterol, Calc 176.2 H (0.0-131.0) mg/dL HDL Cholesterol 34.50 L (40.00-60.00) mg/dL 11/18/22 11/19/22 Range/Units 16:28 07:56 WBC (3.8-10.6) k/uL Neutrophils # (1.3-7.7) k/uL APTT (22.0-30.0) sec Chloride 108 H (98-107) mmol/L Glucose 134 H (74-99) mg/dL POC Glucose (mg/dL) (70-110) mg/dL Troponin I 1.680 H* (0.000-0.034) ng/mL Cholesterol (0.00-200.00) mg/dL LDL Cholesterol, Calc (0.0-131.0) mg/dL HDL Cholesterol (40.00-60.00) mg/dL
[2022-11-19] MEDS: ATORVASTATIN 80 MG TAB PO SCH (20:21)
[2022-11-19 23:36] LABS: Potassium 3.8 mmol/L (3.5-5.1)
[2022-11-19] MEDS ORDERED: Potassium Replacement Protocol 1 EACH MISC MISCELLANE PRN (23:41)
[2022-11-20] MEDS ORDERED: POTASSIUM CHLORIDE ER 20 MEQ TAB.ER PO SCH
[2022-11-20 05:33] LABS: Basophils # (A) 0.1 k/uL (0-0.2); Basophils % (A) 0 %; Eosinophils # (A) 0.3 k/uL (0-0.7); Eosinophils % (A) 3 %; HCT 42.2 % (39.0-53.0); HGB 14.2 gm/dL (13.0-17.5); Lymphocytes % (A) 24 %; MCH 28.4 pg (25.0-35.0); MCHC 33.7 g/dL (31.0-37.0); MCV 84.3 fL (80.0-100.0); Mean Platelet Volume 8.3; Monocytes # (A) 0.8 k/uL (0-1.0); Monocytes % (A) 7 %; Neutrophils # (A) 7.8 k/uL (1.3-7.7); Neutrophils % (A) 64 %; Platelet Count 180 k/uL (150-450); RDW 14.7 % (11.5-15.5); WBC 12.2 k/uL (3.8-10.6)
[2022-11-20 05:57] LABS: ALT 28 U/L (4-49); AST 35 U/L (17-59); African American GFR (CKD) >90 (>60 ml/min/1.73 sqM); Albumin 3.6 g/dL (3.5-5.0); Alkaline Phosphatase 68 U/L (38-126); Anion Gap 8 mmol/L; Blood Urea Nitrogen 14 mg/dL (9-20); Calcium 8.6 mg/dL (8.4-10.2); Carbon Dioxide 24 mmol/L (22-30); Chloride 108 mmol/L (98-107); Glucose 101 mg/dL (74-99); Non-African American GFR(CKD) >90 (>60 ml/min/1.73 sqM); Potassium 4.3 mmol/L (3.5-5.1); Sodium 140 mmol/L (137-145); Total Bilirubin 0.8 mg/dL (0.2-1.3); Total Protein 6.1 g/dL (6.3-8.2)
[2022-11-20] MEDS ORDERED: ATORVASTATIN 80 MG TAB PO ONE (07:00)
[2022-11-20] MEDS ORDERED: HEPARIN SODIUM,PORCINE 2,500 UNIT in SODIUM CHLORIDE 0.9% 250 ML IRRIGATION PRN (07:00)
[2022-11-20] MEDS ORDERED: HEPARIN SODIUM,PORCINE 10,000 UNIT in SODIUM CHLORIDE 0.9% 1,000 ML IRRIGATION PRN (07:00)
[2022-11-20] MEDS ORDERED: ASPIRIN 325 MG TAB PO ONE (07:00)
[2022-11-20] MEDS ORDERED: IV FLUID CONTINUATION 1,000 ML IV ONE (07:28)
[2022-11-20] MEDS ORDERED: fentaNYL (PF) 50 MCG/ML 2 ML AMP ONE (07:31)
[2022-11-20] MEDS ORDERED: VERAPAMIL SYRINGE (5 MG/10 ML) INTRAARTER ONE (08:07)
[2022-11-20] MEDS ORDERED: LIDOCAINE 1% INJ 10MG/ML (5 ML VIAL-PF) SQ ONE (08:07)
[2022-11-20] MEDS ORDERED: fentaNYL (PF) 50 MCG/1 ML VIAL IV ONE (08:07)
[2022-11-20] MEDS ORDERED: HEPARIN SODIUM 1,000 UN/ML (10ML VL) ONE (08:14)
[2022-11-20] MEDS ORDERED: HEPARIN SODIUM 1,000 UN/ML (10ML VL) IV ONE (08:16)
[2022-11-20] MEDS ORDERED: NITROGLYCERIN 1000MCG/10ML SYRINGE INTRAARTER ONE (08:23)
[2022-11-20] MEDS ORDERED: IOPAMIDOL-370 100ML BTL INJ ONE (08:42)
[2022-11-20] MEDS ORDERED: MAG HYDROX/AL HYDROX/SIMETH 30 ML CUP PO PRN (08:43)
[2022-11-20] MEDS ORDERED: ZOLPIDEM 5 MG TAB PO PRN (08:43)
[2022-11-20] MEDS ORDERED: NITROGLYCERIN SL TABS 0.4 MG TAB SUBLINGUAL PRN (08:43)
[2022-11-20] MEDS ORDERED: ATROPINE SULFATE 0.1 MG/ML 10ML SYRINGE IV PRN (08:43)
[2022-11-20] MEDS ORDERED: RX INFO: IV CONTRAST WAS GIVEN 1 EACH MISC MISCELLANE PRN (08:43)
[2022-11-20] MEDS ORDERED: SODIUM CHLORIDE 0.9% 1,000 ML in EMPTY BAG 1 BAG IV SCH (08:45)
--- NOTE | 2022-11-20 08:51 | P.CARDCATH ---
Date of Procedure: 11/20/22 Description of Procedure: PERCUTANEOUS TRANSLUMINAL CORONARY ANGIOPLASTY CLINICAL INFORMATION: The patient is a 56-year-old male who presented on Sunday with an acute inferior wall myocardial infarction, underwent stenting of the RCA and was found to have severe stenosis involving the ostium of the first obtuse marginal branch . Recommendations were made regarding angioplasty and stenting. The procedure as well as the risks and the complications were discussed with the patient who was in full understanding and agreement. PROCEDURE: The patient was brought to the laborer concrete paving in the fasting and semi- sedated state after receiving Benadryl and fentanyl, using Xylocaine anesthesia in the modified Seldinger technique a 6-Chadian sheath with introduced in the right radial artery. Attempted massa wire in the ascending aorta was unsuccessful because of tortuosity, a 5-Chadian 3.5 bend right James was used to orient the wire to the ascending aorta. Subsequently A 6 Chadian EBU 3.75 guiding catheter was introduced into the system. After cannulating the left main, a 0.014 BMW change was advanced across the lesion and positioned distally in the left circumflex and subsequently another 0.014 BMW J-wire was positioned in the OM1. Following that a 2.5 x 12 Treck balloon was advanced and inflated at 8 atmosphere. Following that a 3.25 x 23 mm Xience elizabeth point stent was deployed. It was dilated at 16. After removing the balloon a 3.5 x 8 mm NC Treck was positioned in the proximal segment of the stent and one inflation at 10 alona was done. After the last inflation, after appropriate wait, the balloon and the guidewire were withdrawn back into the guiding catheter. Images were obtained and repeated. Those images reveal stable successful stenting. At that point, the guiding catheter, the balloon, and guidewire were removed. The sheath was removed. Hemostasis was obtained with deployment of a TR band. There were no immediate complications. The patient was returned to the room in stable condition. Of note, the patient received 7000 units of heparin as well as continued on the Brlinta. His ACT was followed. There was no immediate complications. He had chest discomfort for the inflation that resolved at the end of the procedure RESULTS: Successful stenting of the ostium of the first OM with reduction of stenosis from 90 % to 0 %. RECOMMENDATIONS: The patient will continue on aspirin and Brilinta for one year in addition to aggressive coronary risk modification. The findings and recommendations were discussed with the patient and the family, they are in full understanding and agreement. Duration of sedation: 33 minutes
[2022-11-20] MEDS: lisinopriL 5 MG TAB PO SCH ×2 (09:01→20:23)
[2022-11-20] MEDS: MULTIVITAMINS, THERA 1 EACH TAB PO SCH (09:02)
[2022-11-20] MEDS: ASPIRIN 81 MG PO SCH (09:02)
[2022-11-20] MEDS: METOPROLOL TARTRATE 25 MG TAB PO SCH (09:04)
[2022-11-20] MEDS: TICAGRELOR 90 MG TAB PO SCH ×2 (09:04→20:23)
--- NOTE | 2022-11-20 13:41 | P.PN ---
Subjective Progress Note Date: 11/20/22 patient is a 56-year-old gentleman with past medical history significant for hyperlipidemia who presented to the ER for chest pain. Patient stated that he was all right this morning when he started having severe chest pain, while he was working in the lawn. Chest pain was central in location, nonradiating. It was associated with shortness of breath and diaphoresis. EMS was called immediately and patient received [address] to the ER. Patient was worked up in the ER, initial lab work showed WBC 13, hemoglobin 14.7, sodium 138, potassium 3.9, BUN 13, creatinine 0.91. EKG done showed ST elevation in leads 2, 3 and aVF. ER called interventional cardiology for ST elevation changes in inferior leads. Patient underwent cardiac cath showing acutely occluded distal RCA, Significant disease in OM1, Moderate disease in the mid RCA , patient underwent Successful stenting of the distal RCA with reduction of stenosis from 100% to 0%. Post cath patient was admitted to ICU 11/19. Patient seen and examined. No further episodes of chest pain. Sitting upright in the bed. Labs this morning showed sodium 141, potassium 4.2, BUN 12, creatinine 0.83, total cholesterol 223, LDL 176. Patient states he gets muscle pains with statins, unable to tolerate statins in outpatient setting before. 11/20. Patient seen and examined. Patient went for cardiac cath today for stenting of OM1. Post cardiac cath patient was seen, in no acute distress REVIEW OF SYSTEMS: CONSTITUTIONAL: No fever, no malaise,. CARDIOVASCULAR: No chest pain, no palpitations, no syncope. PULMONARY: No shortness of breath, no cough, GASTROINTESTINAL: No diarrhea, no nausea, no vomiting, no abdominal pain. NEUROLOGICAL: No headaches, no weakness, PHYSICAL EXAMINATION: GENERAL: The patient is alert and oriented x3, not in any acute distress. Well developed, well nourished. HEENT: Pupils are round and equally reacting to light. EOMI. No scleral icterus. No conjunctival pallor. Normocephalic, atraumatic. No pharyngeal erythema. No thyromegaly. CARDIOVASCULAR: S1 and S2 present. No murmurs, rubs, or gallops. PULMONARY: Chest is clear to auscultation, no wheezing or crackles. ABDOMEN: Soft, nontender, nondistended, normoactive bowel sounds. No palpable organomegaly. MUSCULOSKELETAL: No joint swelling or deformity. EXTREMITIES: No cyanosis, clubbing, or pedal edema. NEUROLOGICAL: Gross neurological examination did not reveal any focal deficits. SKIN: No rashes. Assessment and plan Acute ST elevation [place] Hyperlipidemia Peripheral arterial disease Plan; Monitor vital signs Monitor CBC Monitor CMP Continue telemetry monitoring Status post Successful stenting of the distal RCA on 11/18 Patient went cardiac cath today with Successful stenting of the ostium of the first OM with reduction of stenosis from 90 % to 0 % Continue aspirin and brilinta echocardiogram showed an ejection fraction of 40-45% with inferior and inferoseptal hypokinesis and mild mitral regurgitation Continue lisinopril and Lopressor Follow-up on cardiology recommendations Patient currently on Lipitor, if patient unable to tolerate statins, patient might be a candidate for PCSK9 inhibitors like Repatha Objective - Vital Signs Vital signs: Vital Signs Temp 98.0 F 11/20/22 09:13 Pulse 82 11/20/22 09:28 Resp 18 11/20/22 09:28 BP 124/86 11/20/22 09:28 Pulse Ox 96 11/20/22 09:28 FiO2 Intake & Output 11/19/22 11/20/22 11/20/22 18:59 06:59 18:59 Intake Total 250 Output Total 500 0 Balance -500 250 Weight 108 kg Intake: IV 250 Sodium Chloride 0.9% 1, 150 000 ml In Empty Bag 1 bag @ 1 ML/KG/HR 108 mls/hr IV .Q9H16M [facility] Rx#: [id number] Output: Urine 500 0 Other: Voiding Method Urinal Urinal # Voids 3 1 - Labs CBC & Chem 7: 11/20/22 05:10 11/20/22 05:10 Labs: Abnormal Lab Results - Last 24 Hours (Table) 11/20/22 11/20/22 Range/Units 05:10 05:10 WBC 12.2 H (3.8-10.6) k/uL Neutrophils # 7.8 H (1.3-7.7) k/uL Chloride 108 H (98-107) mmol/L Glucose 101 H (74-99) mg/dL Total Protein 6.1 L (6.3-8.2) g/dL
--- NOTE | 2022-11-20 19:29 | P.PN ---
Subjective Patient is resting comfortably in bed He was admitted with acute myocardial infarction and underwent stenting to the RCA Today he underwent stenting to the left circumflex He has a mildly reduced left radical ejection fraction His radial access site is healed well but circulation in the right hand Blood pressure 124/86 mmHg pulse rate in the 80s afebrile Breath sounds are clear no rhonchi no crackles Normal heart sounds He does complain of mild shortness of breath when he lays in bed Normal electrolytes normal renal function hemoglobin 14 Total cholesterol 223, LDL 176 Suggest Increase metoprolol to 50 mg twice daily Objective - Vital Signs Vital signs: Vital Signs Temp 97.9 F 11/20/22 16:00 Pulse 71 11/20/22 16:00 Resp 17 11/20/22 16:00 BP 121/62 11/20/22 16:00 Pulse Ox 96 11/20/22 16:00 FiO2 Intake & Output 11/20/22 11/20/22 11/21/22 06:59 18:59 06:59 Intake Total 1000 Output Total 0 Balance 1000 Weight 108 kg Intake: IV 1000 Sodium Chloride 0.9% 1, 900 000 ml In Empty Bag 1 bag @ 1 ML/KG/HR 108 mls/hr IV .Q9H16M [facility] Rx#: [id number] Output: Urine 0 Other: Voiding Method Urinal # Voids 1 2 # Bowel Movements 1 - Labs CBC & Chem 7: 11/20/22 05:10 11/20/22 05:10 Labs: Abnormal Lab Results - Last 24 Hours (Table) 11/20/22 11/20/22 Range/Units 05:10 05:10 WBC 12.2 H (3.8-10.6) k/uL Neutrophils # 7.8 H (1.3-7.7) k/uL Chloride 108 H (98-107) mmol/L Glucose 101 H (74-99) mg/dL Total Protein 6.1 L (6.3-8.2) g/dL
[2022-11-20] MEDS: ATORVASTATIN 80 MG TAB PO SCH (20:23)
[2022-11-20] MEDS: ACETAMINOPHEN TAB 325 MG TAB PO PRN (20:23)
[2022-11-20] MEDS: METOPROLOL TARTRATE 50 MG TAB PO SCH (20:23)
[2022-11-21 06:27] LABS: HCT 44.1 % (39.0-53.0); HGB 13.9 gm/dL (13.0-17.5); MCH 27.4 pg (25.0-35.0); MCHC 31.5 g/dL (31.0-37.0); Platelet Count 220 k/uL (150-450); RBC 5.07 m/uL (4.30-5.90); RDW 14.4 % (11.5-15.5)
[2022-11-21 06:32] LABS: African American GFR (CKD) >90 (>60 ml/min/1.73 sqM); Anion Gap 6 mmol/L; Blood Urea Nitrogen 14 mg/dL (9-20); Calcium 8.7 mg/dL (8.4-10.2); Carbon Dioxide 25 mmol/L (22-30); Chloride 108 mmol/L (98-107); Glucose 103 mg/dL (74-99); Non-African American GFR(CKD) >90 (>60 ml/min/1.73 sqM); Potassium 4.3 mmol/L (3.5-5.1); Sodium 139 mmol/L (137-145)
[2022-11-21] MEDS: METOPROLOL TARTRATE 50 MG TAB PO SCH ×2 (08:20→21:29)
[2022-11-21] MEDS: TICAGRELOR 90 MG TAB PO SCH ×2 (08:20→21:29)
[2022-11-21] MEDS: MULTIVITAMINS, THERA 1 EACH TAB PO SCH (08:20)
[2022-11-21] MEDS: lisinopriL 5 MG TAB PO SCH ×2 (08:20→21:29)
[2022-11-21] MEDS: ASPIRIN 81 MG PO SCH (08:20)
--- NOTE | 2022-11-21 10:48 | P.PN ---
Subjective Progress Note Date: 11/21/22 The patient is a 56-year-old male who is admitted with an inferior wall myocardial infarction. He underwent stenting of the RCA, followed by staged stenting of the OM1. EF is 40-45% via echocardiogram. Overnight the patient states he's done well and has no complaints. No recurrence of chest pain or sami st pressure. No difficulty breathing. No dizziness or lightheadedness. He states he has been up ambulating around the room. At the time of my examination, patient was encouraged to run in place while on telemetry. PVCs are suppressed with higher heart rates, therefore no need to increase beta eva per Dr. Chávez. GENERAL: Well-appearing, well-nourished and in no acute distress. NECK: Supple without JVD or thyromegaly. LUNGS: Breath sounds clear to auscultation bilaterally. Respiration equal and unlabored. No wheezes, rales or rhonchi. HEART: Regular rate and rhythm without murmurs, rubs or gallops. S1 and S2 heard. EXTREMITIES: Normal range of motion, no edema. No clubbing or cyanosis. Peripheral pulses intact and strong. Mild bruising at right radial site. No hematoma. TELEMETRY: Sinus rhythm with frequent PVCs. Frequent episodes of trigeminy. IMPRESSION: Inferior wall myocardial infarction Status post stenting of the RCA and OM 1 Ischemic cardiomyopathy, EF 45% Frequent PVCs, suppressed with activity PLAN: Continue current medication regimen Encourage ambulation Patient may be transferred to 3S Possible discharge tomorrow I am dictating on behalf of Dr Karthik Chávez's history/physical and assessment/plan. Objective - Vital Signs Vital signs: Vital Signs Temp 98.3 F 11/21/22 08:00 Pulse 68 11/21/22 08:00 Resp 13 11/21/22 08:00 BP 108/72 11/21/22 08:00 Pulse Ox 95 11/21/22 08:00 FiO2 Intake & Output 11/20/22 11/21/22 11/21/22 18:59 06:59 18:59 Intake Total 1000 1080 Output Total 0 Balance 1000 1080 Weight 102.4 kg Intake: IV 1000 Sodium Chloride 0.9% 1, 900 000 ml In Empty Bag 1 bag @ 1 ML/KG/HR 108 mls/hr IV .Q9H16M [facility] Rx#: [id number] Oral 1080 Output: Urine 0 Other: Voiding Method Urinal Toilet # Voids 2 1 # Bowel Movements 1 - Labs CBC & Chem 7: 11/21/22 06:09 11/21/22 06:09 Labs: Abnormal Lab Results - Last 24 Hours (Table) 11/21/22 11/21/22 Range/Units 06:09 06:09 WBC 13.0 H (3.8-10.6) k/uL Chloride 108 H (98-107) mmol/L Glucose 103 H (74-99) mg/dL
--- NOTE | 2022-11-21 12:13 | P.PN ---
Subjective Progress Note Date: 11/21/22 patient is a 56-year-old gentleman with past medical history significant for hyperlipidemia who presented to the ER for chest pain. Patient stated that he was all right this morning when he started having severe chest pain, while he was working in the lawn. Chest pain was central in location, nonradiating. It was associated with shortness of breath and diaphoresis. EMS was called immediately and patient received [address] to the ER. Patient was worked up in the ER, initial lab work showed WBC 13, hemoglobin 14.7, sodium 138, potassium 3.9, BUN 13, creatinine 0.91. EKG done showed ST elevation in leads 2, 3 and aVF. ER called interventional cardiology for ST elevation changes in inferior leads. Patient underwent cardiac cath showing acutely occluded distal RCA, Significant disease in OM1, Moderate disease in the mid RCA , patient underwent Successful stenting of the distal RCA with reduction of stenosis from 100% to 0%. Post cath patient was admitted to ICU 11/19. Patient seen and examined. No further episodes of chest pain. Sitting upright in the bed. Labs this morning showed sodium 141, potassium 4.2, BUN 12, creatinine 0.83, total cholesterol 223, LDL 176. Patient states he gets muscle pains with statins, unable to tolerate statins in outpatient setting before. 11/20. Patient seen and examined. Patient went for cardiac cath today for stenting of OM1. Post cardiac cath patient was seen, in no acute distress 11/21. Patient seen and examined. No acute issues overnight. telemetry showing a lot of PVCs. WBC this morning is 13, sodium 139, potassium 4.3, BUN 14 creatinine 0.85. REVIEW OF SYSTEMS: CONSTITUTIONAL: No fever, no malaise,. CARDIOVASCULAR: No chest pain, no palpitations, no syncope. PULMONARY: No shortness of breath, no cough, GASTROINTESTINAL: No diarrhea, no nausea, no vomiting, no abdominal pain. NEUROLOGICAL: No headaches, no weakness, PHYSICAL EXAMINATION: GENERAL: The patient is alert and oriented x3, not in any acute distress. Well developed, well nourished. HEENT: Pupils are round and equally reacting to light. EOMI. No scleral icterus. No conjunctival pallor. Normocephalic, atraumatic. No pharyngeal erythema. No thyromegaly. CARDIOVASCULAR: S1 and S2 present. No murmurs, rubs, or gallops. PULMONARY: Chest is clear to auscultation, no wheezing or crackles. ABDOMEN: Soft, nontender, nondistended, normoactive bowel sounds. No palpable organomegaly. MUSCULOSKELETAL: No joint swelling or deformity. EXTREMITIES: No cyanosis, clubbing, or pedal edema. NEUROLOGICAL: Gross neurological examination did not reveal any focal deficits. SKIN: No rashes. Assessment and plan Acute ST elevation [place] Hyperlipidemia Peripheral arterial disease Plan; Monitor vital signs Monitor CBC Monitor CMP Continue telemetry monitoring Status post Successful stenting of the distal RCA on 11/18 Successful stenting of the ostium of the first OM with reduction of stenosis from 90 % to 0 % on 11/20 Continue aspirin and brilinta echocardiogram showed an ejection fraction of 40-45% with inferior and inferoseptal hypokinesis and mild mitral regurgitation Continue lisinopril and Lopressor Follow-up on cardiology recommendations Patient currently on Lipitor, if patient unable to tolerate statins, patient might be a candidate for PCSK9 inhibitors like Repatha Objective - Vital Signs Vital signs: Vital Signs Temp 98.3 F 11/21/22 08:00 Pulse 68 11/21/22 08:00 Resp 13 11/21/22 08:00 BP 108/72 11/21/22 08:00 Pulse Ox 95 11/21/22 08:00 FiO2 Intake & Output 11/20/22 11/21/22 11/21/22 18:59 06:59 18:59 Intake Total 1000 1080 Output Total 0 Balance 1000 1080 Weight 102.4 kg Intake: IV 1000 Sodium Chloride 0.9% 1, 900 000 ml In Empty Bag 1 bag @ 1 ML/KG/HR 108 mls/hr IV .Q9H16M [facility] Rx#: [id number] Oral 1080 Output: Urine 0 Other: Voiding Method Urinal Toilet # Voids 2 1 # Bowel Movements 1 - Labs CBC & Chem 7: 11/21/22 06:09 11/21/22 06:09 Labs: Abnormal Lab Results - Last 24 Hours (Table) 11/21/22 11/21/22 Range/Units 06:09 06:09 WBC 13.0 H (3.8-10.6) k/uL Chloride 108 H (98-107) mmol/L Glucose 103 H (74-99) mg/dL
[2022-11-21] MEDS: ACETAMINOPHEN TAB 325 MG TAB PO PRN (17:40)
[2022-11-21] MEDS: ATORVASTATIN 80 MG TAB PO SCH (21:29)
[2022-11-21 23:54] VITALS: TEMP 98.2
[2022-11-22] MEDS: TICAGRELOR 90 MG TAB PO SCH (08:21)
[2022-11-22] MEDS: ASPIRIN 81 MG PO SCH (08:21)
[2022-11-22] MEDS: MULTIVITAMINS, THERA 1 EACH TAB PO SCH (08:22)
[2022-11-22] MEDS: lisinopriL 5 MG TAB PO SCH (08:22)
[2022-11-22] MEDS: METOPROLOL TARTRATE 50 MG TAB PO SCH (08:22)
[2022-11-22 08:23] VITALS: RESP 16
--- NOTE | 2022-11-22 11:17 | P.PN ---
Progress Note - Text Patient underwent stenting to the RCA and left circumflex He is done well postprocedure However he has ventricular trigeminy PVCs originating from the basal inferolateral wall, very frequent Suppressed with exercise On beta blockers at this time Plan Discharge home today Follow-up Dr. Billy Exercise treadmill stress test prior to cardiac rehab, also to look for any exercise-induced VT in 1-2 weeks Follow-up Holter monitor after about 12 weeks to assess PVC burden Patient may benefit from ablation of the PVCs if the PVC burden is greater than 15-20% at that point
--- NOTE | 2022-11-22 12:06 | P.DS ---
Providers Date of admission: 11/18/22 11:34 Expected date of discharge: 11/22/22 Attending physician: Jenna Saucedo Consults: 11/18/22 12:47 Consult Physician Routine Consulting Provider: [place] Consult Reason/Comments: Post Interventional Patient Do you want consulting provider notified?: Already Contacted 11/20/22 08:43 Consult Physician Routine Consulting Provider: Cardiology Can Consult Reason/Comments: Post Interventional Patient Do you want consulting provider notified?: Already Contacted Primary care physician: [facility] Course: Discharge diagnoses; Acute ST elevation [place] Successful stenting of the distal RCA on 11/18 Successful stenting of the ostium of the first OM with reduction of stenosis from 90 % to 0 % on 11/20 Hyperlipidemia Peripheral arterial disease Hospital course; patient is a 56-year-old gentleman with past medical history significant for hyperlipidemia who presented to the ER for chest pain. Patient stated that he was all right this morning when he started having severe chest pain, while he was working in the lawn. Chest pain was central in location, nonradiating. It was associated with shortness of breath and diaphoresis. EMS was called immediately and patient received [address] to the ER. Patient was worked up in the ER, initial lab work showed WBC 13, hemoglobin 14.7, sodium 138, potassium 3.9, BUN 13, creatinine 0.91. EKG done showed ST elevation in leads 2, 3 and aVF. ER called interventional cardiology for ST elevation changes in inferior leads. Patient underwent cardiac cath showing acutely occluded distal RCA, Significant disease in OM1, Moderate disease in the mid RCA , patient underwent Successful stenting of the distal RCA with reduction of stenosis from 100% to 0%. Post cath patient was admitted to ICU 11/19. Patient seen and examined. No further episodes of chest pain. Sitting upright in the bed. Labs this morning showed sodium 141, potassium 4.2, BUN 12, creatinine 0.83, total cholesterol 223, LDL 176. Patient states he gets muscle pains with statins, unable to tolerate statins in outpatient setting before. 11/20. Patient seen and examined. Patient went for cardiac cath today for stenting of OM1. Post cardiac cath patient was seen, in no acute distress 11/21. Patient seen and examined. No acute issues overnight. telemetry showing a lot of PVCs. WBC this morning is 13, sodium 139, potassium 4.3, BUN 14 creatinine 0.85. /. Patient seen and examined. No acute issues overnight. Cardiology cleared the patient for discharge. Cardiology recommended holter monitor after about 12 weeks to assess PVC burden PHYSICAL EXAMINATION: GENERAL: The patient is alert and oriented x3, not in any acute distress. Well developed, well nourished. HEENT: Pupils are round and equally reacting to light. EOMI. No scleral icterus. No conjunctival pallor. Normocephalic, atraumatic. No pharyngeal erythema. No thyromegaly. CARDIOVASCULAR: S1 and S2 present. No murmurs, rubs, or gallops. PULMONARY: Chest is clear to auscultation, no wheezing or crackles. ABDOMEN: Soft, nontender, nondistended, normoactive bowel sounds. No palpable organomegaly. MUSCULOSKELETAL: No joint swelling or deformity. EXTREMITIES: No cyanosis, clubbing, or pedal edema. NEUROLOGICAL: Gross neurological examination did not reveal any focal deficits. SKIN: No rashes. Plan - Discharge Summary Discharge Rx Participant: Yes New Discharge Prescriptions: New Metoprolol Tartrate [Lopressor] 50 mg PO BID #180 tab Nitroglycerin Sl Tabs [Nitrostat] 0.4 mg SUBLINGUAL Q5M PRN #25 tab PRN Reason: Chest Pain lisinopriL [Zestril] 5 mg PO BID #180 tab Aspirin 81 mg PO DAILY tab Ticagrelor [Brilinta] 90 mg PO BID #180 tab Atorvastatin [Lipitor] 80 mg PO HS #90 tab Continue Multivitamins, Thera [Multivitamin (formulary)] 1 tab PO DAILY Nature's Bounty Immune 24 Hr 1 tab PO Q2D Discontinued cilostazoL [Pletal] 100 mg PO BID Discharge Medication List Multivitamins, Thera [Multivitamin (formulary)] 1 tab PO DAILY 11/18/22 [History] Nature's Bounty Immune 24 Hr 1 tab PO Q2D 11/18/22 [History] Aspirin 81 mg PO DAILY tab 11/22/22 [Rx] Atorvastatin [Lipitor] 80 mg PO HS #90 tab 11/22/22 [Rx] Metoprolol Tartrate [Lopressor] 50 mg PO BID #180 tab 11/22/22 [Rx] Nitroglycerin Sl Tabs [Nitrostat] 0.4 mg SUBLINGUAL Q5M PRN #25 tab 11/22/22 [Rx] Ticagrelor [Brilinta] 90 mg PO BID #180 tab 11/22/22 [Rx] lisinopriL [Zestril] 5 mg PO BID #180 tab 11/22/22 [Rx] Follow up Appointment(s)/Referral(s): Suly Billy MD [STAFF PHYSICIAN] - 1 Week Levon Martinez DO [Primary Care Provider] - 1-2 days Discharge Disposition: HOME SELF-CARE
[2022-11-22 12:32] VITALS: BP 112/64; PULSE 64
== END 2022-11-22 14:44 | disposition home or self-care (01) | DRG 247 ==
LOC: EC 11:21 → 3SCARD 11:34 → 2SICU 12:40 → 3SCARD 11-21 11:16
PROVIDERS: ADMIT Hospitalist; ATTEND Hospitalist
PROC: B2111ZZ Fluoroscopy of Multiple Coronary Arteries using Low Osmolar Contrast (ICD-10-PCS; 2022-11-18)
PROC: B240ZZ3 Ultrasonography of Single Coronary Artery, Intravascular (ICD-10-PCS; 2022-11-18)
PROC: 4A023N7 Measurement of Cardiac Sampling and Pressure, Left Heart, Percutaneous Approach (ICD-10-PCS; principal; 2022-11-18 11:28)
PROC: 027034Z Dilation of Coronary Artery, One Artery with Drug-eluting Intraluminal Device, Percutaneous Approach (ICD-10-PCS; 2022-11-18 11:28)
PROC: 027034Z Dilation of Coronary Artery, One Artery with Drug-eluting Intraluminal Device, Percutaneous Approach (ICD-10-PCS; 2022-11-20)
DX: I21.19 ST elevation (STEMI) myocardial infarction involving other coronary artery of inferior wall (principal); E78.5 Hyperlipidemia, unspecified; I73.9 Peripheral vascular disease, unspecified; I34.0 Nonrheumatic mitral (valve) insufficiency; F17.210 Nicotine dependence, cigarettes, uncomplicated; R00.8 Other abnormalities of heart beat; I49.3 Ventricular premature depolarization; I25.5 Ischemic cardiomyopathy; Z88.0 Allergy status to penicillin; Z79.899 Other long term (current) drug therapy; Z82.49 Family history of ischemic heart disease and other diseases of the circulatory system
CPT/HCPCS: 71045; 80048; 80051; 80053; 80061; 83735; 84484; 85025; 85027; 85610; 85730; 92978; 93005; 93306; 93458; 94760; 96374; 99291

== ENCOUNTER → 2023-03-13 | Day surgery (SDC) | payer BC ==
[2023-03-07 17:32] VITALS: BMI 32.9
[~2023-03-13] MED LIST: ALPRAZolam 0.25 MG TAB PO PRN; ASPIRIN 325 MG TAB PO PRN; HEPARIN SODIUM,PORCINE (1 ML) 2,500 UNIT in SODIUM CHLORIDE 0.9% 250 ML IRRIGATION PRN; HEPARIN SODIUM,PORCINE 10,000 UNIT in SODIUM CHLORIDE 0.9% 1,000 ML IRRIGATION PRN; SODIUM CHLORIDE 0.9% 1,000 ML IV ONE; SODIUM CHLORIDE 0.9% 1,000 ML in EMPTY BAG 1 BAG IV ONE; ZOLPIDEM 5 MG TAB PO PRN
[2023-03-13 09:52] VITALS: BP 132/79; PULSE 51; RESP 16; TEMP 98.2
== END ==
LOC: CATHCVL 09:08 → 6NMEDSUR 14:33 → CATHCVL 14:33
PROVIDERS: ATTEND Internal Medicine Interventional Cardiology
DX: I70.213 Atherosclerosis of native arteries of extremities with intermittent claudication, bilateral legs (principal)

== ENCOUNTER 2023-03-14 05:56 | Day surgery (SDC) | payer BC ==
[2023-03-14] MEDS ORDERED: ZOLPIDEM 5 MG TAB PO PRN (06:02)
[2023-03-14] MEDS ORDERED: SODIUM CHLORIDE 0.9% 1,000 ML in EMPTY BAG 1 BAG IV ONE (06:02)
[2023-03-14] MEDS ORDERED: ALPRAZolam 0.25 MG TAB PO PRN (06:02)
[2023-03-14 06:47] VITALS: RESP 18; TEMP 97.8
[2023-03-14] MEDS ORDERED: HEPARIN SODIUM,PORCINE (1 ML) 2,500 UNIT in SODIUM CHLORIDE 0.9% 250 ML IRRIGATION PRN (07:00)
[2023-03-14] MEDS ORDERED: HEPARIN SODIUM,PORCINE 10,000 UNIT in SODIUM CHLORIDE 0.9% 1,000 ML IRRIGATION PRN (07:00)
[2023-03-14] MEDS ORDERED: ASPIRIN 325 MG TAB PO PRN (07:00)
[2023-03-14] MEDS ORDERED: LIDOCAINE 1% INJ 10MG/ML (20 ML MDV) SQ ONE (07:34)
[2023-03-14] MEDS ORDERED: MIDAZOLAM 2 MG/2 ML VIAL IVP ONE (07:35)
[2023-03-14] MEDS ORDERED: HYDROmorphone 0.5 MG/0.5 ML SYRINGE IVP ONE (07:40)
[2023-03-14] MEDS ORDERED: SODIUM CHLORIDE 0.9% 1,000 ML IV ONE (08:00)
[2023-03-14] MEDS ORDERED: IOPAMIDOL-250 100ML BTL INTRAARTER ONE (08:00)
[2023-03-14] MEDS ORDERED: NALOXONE 0.4 MG/ML 1 ML VIAL IVP PRN (08:10)
[2023-03-14] MEDS ORDERED: SODIUM CHLORIDE 0.9% 1,000 ML in EMPTY BAG 1 BAG IV SCH (08:15)
--- NOTE | 2023-03-14 08:51 | IR ---
EXAMINATION TYPE: IR angio abdominal w runoff DATE OF EXAM: 03/14/2023 COMPARISON: NONE HISTORY: Fluoroscopy time. Fluoroscopy was provided to the referring clinician.
[2023-03-14 11:38] VITALS: BP 112/55; PULSE 55
--- NOTE | 2023-03-14 19:17 | P.PCN ---
Date of Procedure: 03/14/23 Operative Findings: AN ABDOMINAL AORTOGRAM AND BILATERAL LOWER EXTREMITIES RUNOFF PERFORMING PHYSICIAN: Archie Michael MD PROCEDURE PERFORMED: 1. An abdominal aortogram 2. Bilateral lower extremities runoff 3. Ultrasound-guided access of the right radial artery INDICATION: Left lower extremities intermittent claudication this 57-year-old gentleman who underwent an arterial duplex study and that showed severe left iliac disease COMPLICATION: None LEVEL OF SEDATION: Moderate was sedation length of moderate with sedation length of 25 minutes APPROACH: Right radial artery PROCEDURE DESCRIPTION: After obtaining informed consent and explaining the procedure benefits, risks, and complications, the patient was brought to the cardiac cathode ray tube salvage processor.. The left radial artery was cannulated using micropuncture technique, under ultrasound guidance. A micropuncture wire was advanced, and the micropuncture sheath was advanced over the wire, then the micropuncture sheath was exchanged over an 0.35 wire into a 5-Somali sheath dilator assembly then the wire and dilator were removed and sheath was flushed. We did an abdominal aortogram and bilateral lower extremities runoff using 5-Somali pigtail catheter using a power injection. The catheter was initially placed at the level of the renal arteries, and it was advanced into above the bifurcation of the aorta into right and left common iliac arteries. The procedure was completed and there was no complications. SELECTIVE PERIPHERAL ANGIOGRAM: The abdominal aorta: Is angiographically normal The common iliac arteries: The right common iliac artery appears to be normal. The left common iliac artery is occluded The external iliac arteries: Both external iliac arteries appeared to be angiographically normal The internal iliac arteries: The right internal iliac artery appeared to be patent. The left internal iliac artery is subtotally occluded The common femoral arteries: Both common femoral arteries appeared to be angiographically normal Superficial femoral arteries: Both SFA appears to have mild disease only Popliteal arteries: Both popliteal appeared to have mild disease only Below the knees: Poorly visualized below the knee arteries CONCLUSION: 1. Occluded left iliac 2. The left femoral and left SFA and left popliteal were not well visualized because of poor inflow. 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
== END 2023-03-14 11:41 | disposition home or self-care (01) ==
LOC: CATHCVL 05:56
PROVIDERS: ATTEND Internal Medicine Interventional Cardiology
DX: I70.213 Atherosclerosis of native arteries of extremities with intermittent claudication, bilateral legs (principal); E78.5 Hyperlipidemia, unspecified; F17.210 Nicotine dependence, cigarettes, uncomplicated; Z88.0 Allergy status to penicillin; Z79.82 Long term (current) use of aspirin; Z82.49 Family history of ischemic heart disease and other diseases of the circulatory system; Z79.899 Other long term (current) drug therapy
CPT/HCPCS: 36200; 75625; 75716; C1769 ×2; C1894; J2250; J2001; J1170; Q9966

== ENCOUNTER → 2023-07-04 | Outpatient (CLI) | payer BC ==
--- NOTE | 2023-07-09 11:27 | CT ---
EXAMINATION TYPE: CT angio neck DATE OF EXAM: 07/04/2023 HISTORY: abnormal ultrasound x 2 weeks ago, r/o blockage COMPARISON: None CT DLP: 450.1 mGycm. Automated Exposure Control for Dose Reduction was Utilized. TECHNIQUE: CTA scan of the neck is performed with IV Contrast, patient injected with 100 mL of Isovu e 370, axial images are obtained, coronal and sagittal reformatted images are reviewed. Three-D recon structed images are created on an independent workstation and reviewed. Source images are reviewed. FINDINGS: Carotid/Vascular Structures: There is a 3 vessel arch. Common carotid arteries bifurcate into internal and external carotid arteries. 3-D reconstructed imag es suggest significant narrowing at the right internal carotid artery. On the thin sections through t he right carotid bifurcation the stenosis measures 65%. Atheromatous plaquing without significant jaxon nosis is present at the left internal carotid artery origin. Vertebral arteries are codominant. Internal carotid arteries and vertebral arteries are patent to the skull base. IMPRESSION: 1. 65% narrowing right internal carotid artery origin. 2. Atheromatous plaquing without significant stenosis left internal carotid artery NASCET criteria was used in interpretation of this exam?
== END | disposition home or self-care (01) ==
LOC: RADCTMAIN 14:20
PROVIDERS: ATTEND Internal Medicine Interventional Cardiology
DX: I65.21 Occlusion and stenosis of right carotid artery (principal); R93.89 Abnormal findings on diagnostic imaging of other specified body structures
CPT/HCPCS: 70498; Q9967

== ENCOUNTER → 2023-10-22 | Outpatient (CLI) | payer BC ==
--- NOTE | 2023-10-22 18:38 | US ---
EXAMINATION TYPE: US venous doppler duplex LE DATE OF EXAM: 10/22/2023 2:53 PM COMPARISON: NONE CLINICAL INDICATION: Male, 57 years old with history of R60.0 LOCALIZED EDEMA; edema, rt calf > lt SIDE PERFORMED: Bilateral TECHNIQUE: The lower extremity deep venous system is examined utilizing real time linear array sonog ralph with graded compression, doppler sonography and color-flow sonography. VESSELS IMAGED: Common Femoral Vein Deep Femoral Vein Greater Saphenous Vein * Femoral Vein Popliteal Vein Small Saphenous Vein * Proximal Calf Veins (* superficial vessels) Right Leg: Negative for DVT Left Leg: Negative for DVT IMPRESSION: Grayscale, color doppler, spectral doppler imaging performed of the deep veins of the lo wer extremities. There is normal flow, compressibility, vascular waveforms.
== END | disposition home or self-care (01) ==
LOC: RADUSWWP 14:25
PROVIDERS: ATTEND Internal Medicine Interventional Cardiology
DX: M79.661 Pain in right lower leg (principal); R22.43 Localized swelling, mass and lump, lower limb, bilateral
CPT/HCPCS: 93970

== ENCOUNTER 2024-01-18 22:13 | Emergency (ER) | payer BC ==
[2024-01-18 22:20] VITALS: TEMP 97.2
--- NOTE | 2024-01-18 22:39 | ED ---
General Adult HPI - General Chief complaint: Chest Pain Stated complaint: Chest Pain,Back Pain Time Seen by Provider: 01/18/24 22:23 Source: patient, RN notes reviewed, old records reviewed Limitations: no limitations - History of Present Illness Initial comments: 58-year-old male history of CAD and peripheral vascular disease presenting for evaluation of chest pain. Patient states the pain was in his left upper back just adjacent to his shoulder blade. This was sharp in nature. He states it did travel to his chest. He states the pain is improved at this time. No diffi culty breathing. No vomiting no diaphoresis. History of previous stents. - Related Data Home Medications Medication Instructions Recorded Confirmed Multivitamins, Thera [Multivitamin 1 tab PO DAILY 11/18/22 03/27/23 (formulary)] Nature's Bounty Immune 24 Hr 1 tab PO DAILY 11/18/22 03/27/23 Atorvastatin [Lipitor] 40 mg PO HS 03/07/23 03/27/23 Clopidogrel [Plavix] 75 mg PO DAILY 03/07/23 03/27/23 Ezetimibe [Zetia] 10 mg PO DAILY 03/07/23 03/27/23 Ubidecarenone [Co Q-10] 100 mg PO DAILY 03/07/23 03/27/23 Previous Rx's Medication Instructions Recorded Aspirin 81 mg PO DAILY tab 11/22/22 Metoprolol Tartrate [Lopressor] 50 mg PO BID #180 tab 11/22/22 Nitroglycerin Sl Tabs [Nitrostat] 0.4 mg SUBLINGUAL Q5M PRN #25 tab 11/22/22 lisinopriL [Zestril] 5 mg PO BID #180 tab 11/22/22 Nitroglycerin Sl Tabs [Nitrostat] 0.4 mg SUBLINGUAL Q5M PRN tab 03/29/23 Allergies Allergy/AdvReac Type Severity Reaction Status Date / Time Penicillins Allergy Swelling Verified 01/18/24 22:15 at injection site Review of Systems ROS Statement: Those systems with pertinent positive or pertinent negative responses have been documented in the HPI. ROS Other: All systems not noted in ROS Statement are negative. Past Medical History Past Medical History: Hyperlipidemia, Hypertension, Myocardial Infarction (ME), Vascular Disorder Additional Past Medical History / Comment(s): Peripheral Artery Disease. Last Myocardial Infarction Date:: 11/18/22 History of Any Multi-Drug Resistant Organisms: None Reported Past Surgical History: Heart Catheterization With Stent Additional Past Surgical History / Comment(s): Right fingers amputated, 1 stent to RCA, 1 stent in OM, lower extrmity angiogram with stent placement in the bilat LE. Past Anesthesia/Blood Transfusion Reactions: No Reported Reaction Additional Past Anesthesia/Blood Transfusion Reaction / Comment(s): No hx blood transfusions. Date of Last Stent Placement:: 11/18/22, 11-20-22 Past Psychological History: No Psychological Hx Reported Smoking Status: Former smoker Past Alcohol Use History: Occasional Past Drug Use History: None Reported - Past Family History Mother Family Medical History: Coronary Artery Disease (CAD), Pulmonary Embolus Father Family Medical History: Coronary Artery Disease (CAD) General Exam Limitations: no limitations General appearance: alert, in no apparent distress Head exam: Present: atraumatic, normocephalic Eye exam: Present: normal appearance, PERRL ENT exam: Present: normal exam Neck exam: Present: normal inspection. Absent: tenderness, meningismus Respiratory exam: Present: normal lung sounds bilaterally. Absent: respiratory distress, wheezes Cardiovascular Exam: Present: regular rate, normal rhythm GI/Abdominal exam: Present: soft. Absent: distended, tenderness, guarding Extremities exam: Present: normal inspection, normal capillary refill Neurological exam: Present: alert, oriented X3, CN II-XII intact. Absent: motor sensory deficit Psychiatric exam: Present: normal affect, normal mood Skin exam: Present: warm, dry, intact. Absent: cyanosis, diaphoretic Course Vital Signs 01/18/24 01/18/24 01/19/24 22:15 22:35 00:00 Temperature 97.2 F L Pulse Rate 66 60 58 L Respiratory 20 20 14 Rate Blood Pressure 172/89 150/82 146/77 O2 Sat by Pulse 97 95 95 Oximetry 01/19/24 00:30 Temperature Pulse Rate 58 L Respiratory 13 Rate Blood Pressure 150/78 O2 Sat by Pulse 96 Oximetry Medical Decision Making - Medical Decision Making Was pt. sent in by a medical professional or institution (, PA, RE[employer]ING [employer], urgent care, hospital, or residential...) When possible be specific @ -No Did you speak to anyone other than the patient for history (EMS, parent, family, police, friend...)? What history was obtained from this source @ -No Did you review nursing and triage notes (agree or disagree)? Why? @ -I reviewed and agree with nursing and triage notes Were old charts reviewed (outside hosp., previous admission, EMS record, old EKG, old radiological studies, urgent care reports/EKG's, residential records)? Report findings @ -No old charts were reviewed Differential Chest Pain: Stable Angina, Unstable Angina, STEMI, NSTEMI Aortic Dissection, Pneumothorax, Musculoskeletal, Esophageal Spasm GERD, Cholecystitis, Pancreatitis, Zoster, this is not meant to be an all-inclusive list. EKG interpreted by me (3pts min.). @Sinus rhythm rate of 65, NH interval 164, QRS duration 89, QTc 420 artifact in lead III limiting assessment X-rays interpreted by me (1pt min.). @ -Chest x-ray negative for acute cardiopulmonary findings CT interpreted by me (1pt min.). @ -CT angiography is negative for pulmonary embolism, no acute findings U/S interpreted by me (1pt. min.). @ -None done What testing was considered but not performed or refused? (CT, X-rays, U/S, labs)? Why? @ -None What meds were considered but not given or refused? Why? @ -None Did you discuss the management of the patient with other professionals (professionals i.e. , PA, [employer], lab, RT, psych nurse, social secretary, suction roller, teacher, security flex utility officer, home health care case manager)? Give summary @ -No Was smoking cessation discussed for >3mins.? @ -No Was critical care preformed (if so, how long)? @ -No Were there social determinants of health that impacted care today? How? (Homelessness, low income, unemployed, alcoholism, drug addiction, transportation, low edu. Level, literacy, decrease access to med. care, [facility], rehab)? @ -No Was there de-escalation of care discussed even if they declined (Discuss DNR or withdrawal of care, Hospice)? DNR status @ -No What co-morbidities impacted this encounter? (DM, HTN, Smoking, COPD, CAD, Cancer, CVA, ARF, Chemo, Hep., AIDS, mental health diagnosis, sleep apnea, morbid obesity)? @CAD. Hypertension. Was patient admitted / discharged? Hospital course, mention meds given and route, prescriptions, significant lab abnormalities, going to OR and other pertinent info. @58-year-old male presenting for evaluation of chest pain pain had improved at the time of my evaluation. There was radiation into his back. Patient had previous history of ME with stenting. EKG is sinus without ST segment changes. Chest x-ray is clear. He has normal CBC, normal CMP. Initial troponin is negative. D-dimer is mildly elevated at 0.78. CT angiography was performed which was negative for pulmonary embolism, no acute findings. The patient agreed to repeat troponin testing which is again negative. Patient is asymptomatic and very eager for discharge. 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 Return parameters are discussed. Undiagnosed new problem with uncertain prognosis? @ -No Drug Therapy requiring intensive monitoring for toxicity (Heparin, Nitro, Insulin, Cardizem)? @ -No Were any procedures done? @ -No Diagnosis/symptom? @ -Chest pain Acute, or Chronic, or Acute on Chronic? @ -Acute Uncomplicated (without systemic symptoms) or Complicated (systemic symptoms)? @ -Default Side effects of treatment? @ -No Exacerbation, Progression, or Severe Exacerbation? @ -No Poses a threat to life or bodily function? How? (Chest pain, USA, ME, pneumonia, PE, COPD, DKA, ARF, appy, cholecystitis, CVA, Diverticulitis, Homicidal, Suicidal, threat to staff... and all critical care pts) @ -Low risk at this time - Lab Data Result diagrams: 01/18/24 22:34 01/18/24 22:34 Lab Results 01/18/24 01/18/24 01/18/24 Range/Units 22:34 22:34 22:34 WBC 8.8 (3.8-10.6) k/uL RBC 5.27 (4.30-5.90) m/uL Hgb 15.2 (13.0-17.5) gm/dL Hct 44.8 (39.0-53.0) % MCV 85.0 (80.0-100.0) fL MCH 28.9 (25.0-35.0) pg MCHC 34.0 (31.0-37.0) g/dL RDW 14.0 (11.5-15.5) % Plt Count 196 (150-450) k/uL MPV 8.0 Neutrophils % 59 % Lymphocytes % 24 % Monocytes % 9 % Eosinophils % 5 % Basophils % 1 % Neutrophils # 5.1 (1.3-7.7) k/uL Lymphocytes # 2.1 (1.0-4.8) k/uL Monocytes # 0.8 (0-1.0) k/uL Eosinophils # 0.4 (0-0.7) k/uL Basophils # 0.1 (0-0.2) k/uL PT 10.5 (10.0-12.5) sec INR 0.9 (<1.2) APTT 23.2 (22.0-30.0) sec D-Dimer 0.74 H (<0.60) mg/L FEU Sodium 139 (137-145) mmol/L Potassium 4.1 (3.5-5.1) mmol/L Chloride 107 (98-107) mmol/L Carbon Dioxide 24 (22-30) mmol/L Anion Gap 8 mmol/L BUN 17 (9-20) mg/dL Creatinine 0.84 (0.66-1.25) mg/dL Est GFR (CKD-EPI)AfAm >90 (>60 ml/min/1.73 sqM) Est GFR (CKD-EPI)NonAf >90 (>60 ml/min/1.73 sqM) Glucose 127 H (74-99) mg/dL Calcium 9.5 (8.4-10.2) mg/dL Magnesium 1.9 (1.6-2.3) mg/dL Total Bilirubin 0.6 (0.2-1.3) mg/dL AST 55 (17-59) U/L ALT 69 H (4-49) U/L Alkaline Phosphatase 89 (38-126) U/L Troponin I (0.000-0.034) ng/mL Total Protein 6.8 (6.3-8.2) g/dL Albumin 4.4 (3.5-5.0) g/dL 01/18/24 01/19/24 Range/Units 22:34 00:13 WBC (3.8-10.6) k/uL RBC (4.30-5.90) m/uL Hgb (13.0-17.5) gm/dL Hct (39.0-53.0) % MCV (80.0-100.0) fL MCH (25.0-35.0) pg MCHC (31.0-37.0) g/dL RDW (11.5-15.5) % Plt Count (150-450) k/uL MPV Neutrophils % % Lymphocytes % % Monocytes % % Eosinophils % % Basophils % % Neutrophils # (1.3-7.7) k/uL Lymphocytes # (1.0-4.8) k/uL Monocytes # (0-1.0) k/uL Eosinophils # (0-0.7) k/uL Basophils # (0-0.2) k/uL PT (10.0-12.5) sec INR (<1.2) APTT (22.0-30.0) sec D-Dimer (<0.60) mg/L FEU Sodium (137-145) mmol/L Potassium (3.5-5.1) mmol/L Chloride (98-107) mmol/L Carbon Dioxide (22-30) mmol/L Anion Gap mmol/L BUN (9-20) mg/dL Creatinine (0.66-1.25) mg/dL Est GFR (CKD-EPI)AfAm (>60 ml/min/1.73 sqM) Est GFR (CKD-EPI)NonAf (>60 ml/min/1.73 sqM) Glucose (74-99) mg/dL Calcium (8.4-10.2) mg/dL Magnesium (1.6-2.3) mg/dL Total Bilirubin (0.2-1.3) mg/dL AST (17-59) U/L ALT (4-49) U/L Alkaline Phosphatase (38-126) U/L Troponin I <0.012 <0.012 (0.000-0.034) ng/mL Total Protein (6.3-8.2) g/dL Albumin (3.5-5.0) g/dL Disposition Clinical Impression: Chest pain Disposition: HOME SELF-CARE Condition: Fair Instructions (If sedation given, give patient instructions): Chest Pain (ED) Is patient prescribed a controlled substance at d/c from ED?: No Referrals: Levon Martinez DO [Primary Care Provider] - 1-2 days Time of Disposition: 01:45
[2024-01-18 22:45] LABS: Basophils # (A) 0.1 k/uL (0-0.2); Basophils % (A) 1 %; Eosinophils # (A) 0.4 k/uL (0-0.7); Eosinophils % (A) 5 %; HCT 44.8 % (39.0-53.0); HGB 15.2 gm/dL (13.0-17.5); Lymphocytes # (A) 2.1 k/uL (1.0-4.8); Lymphocytes % (A) 24 %; MCH 28.9 pg (25.0-35.0); Monocytes # (A) 0.8 k/uL (0-1.0); Monocytes % (A) 9 %; Neutrophils # (A) 5.1 k/uL (1.3-7.7); Neutrophils % (A) 59 %; Platelet Count 196 k/uL (150-450); RBC 5.27 m/uL (4.30-5.90); WBC 8.8 k/uL (3.8-10.6)
[2024-01-18 23:00] LABS: ALT 69 U/L (4-49); AST 55 U/L (17-59); African American GFR (CKD) >90 (>60 ml/min/1.73 sqM); Albumin 4.4 g/dL (3.5-5.0); Alkaline Phosphatase 89 U/L (38-126); Anion Gap 8 mmol/L; Blood Urea Nitrogen 17 mg/dL (9-20); Calcium 9.5 mg/dL (8.4-10.2); Carbon Dioxide 24 mmol/L (22-30); Chloride 107 mmol/L (98-107); Glucose 127 mg/dL (74-99); INR 0.9 (<1.2); Magnesium 1.9 mg/dL (1.6-2.3); Non-African American GFR(CKD) >90 (>60 ml/min/1.73 sqM); Partial Thromboplastin Time 23.2 sec (22.0-30.0); Potassium 4.1 mmol/L (3.5-5.1); Prothrombin Time 10.5 sec (10.0-12.5); Sodium 139 mmol/L (137-145); Total Bilirubin 0.6 mg/dL (0.2-1.3); Total Protein 6.8 g/dL (6.3-8.2)
--- NOTE | 2024-01-19 01:38 | XR ---
EXAM: XR Chest, 2 Views CLINICAL HISTORY: ITS.REASON XR Reason: Chest Pain TECHNIQUE: Frontal and lateral views of the chest. COMPARISON: CXR 11/18/22. FINDINGS: Lungs: Clear. No consolidation. Pleural space: No pneumothorax. Heart: No cardiomegaly. Mediastinum: Unremarkable. Bones/Soft Tissues: No acute abnormality. IMPRESSION: 1. No acute process in the chest. Lungs are clear.
--- NOTE | 2024-01-19 01:41 | CT ---
EXAM: CT Angiography Chest With Intravenous Contrast CLINICAL HISTORY: ITS.REASON CT Reason: cp/back pain pos dimer TECHNIQUE: Axial computed tomographic angiography images of the chest with intravenous contrast. CTDI is 25.1 mGy and DLP is 771.9 mGy-cm. This CT exam was performed using one or more of the following dose reduction techniques: automated exposure control, adjustment of the mA and/or kV according to patient size, and/or use of iterative reconstruction technique. MIP reconstructed images were created and reviewed. IV contrast is given. Suboptimal bolus in the pulmonary arteries limits evaluation along with mild breathing motion artifact. COMPARISON: None. FINDINGS: Pulmonary arteries: No pulmonary embolism, as imaged, with breathing motion artifact limiting detail in the peripheral branches. No vascular congestion. Aorta: No dissection or aneurysm of the thoracic aorta. There is hard and soft plaque in the infrarenal abdominal aorta, no AAA as imaged. Lungs: Clear. No consolidation. Pleural space: No significant effusion. No pneumothorax. Heart: Moderate cardiomegaly. No significant pericardial effusion. No evidence of elevated right heart pressures. Bones/joints: No acute fracture. Soft tissues: Unremarkable. Lymph nodes: No enlarged lymph nodes. IMPRESSION: 1. No pulmonary embolism. 2. Lungs are clear.
[2024-01-19 01:51] VITALS: BP 158/78; PULSE 54; RESP 16
== END 2024-01-19 01:51 | disposition home or self-care (01) ==
LOC: EC 22:13
DX: I10 Essential (primary) hypertension (principal); I25.10 Atherosclerotic heart disease of native coronary artery without angina pectoris; Z79.899 Other long term (current) drug therapy; Z88.0 Allergy status to penicillin; Z87.891 Personal history of nicotine dependence
CPT/HCPCS: 36415 ×2; 93005; 85379; 80053; 83735; 84484 ×2; 85025; 85610; 85730; 71046; 71275; 99285; Q9967

== ENCOUNTER → 2024-01-21 | Outpatient (CLI) | payer BC ==
--- NOTE | 2024-01-21 16:28 | US ---
EXAMINATION TYPE: US abdomen complete DATE OF EXAM: 01/21/2024 COMPARISON: None CLINICAL INDICATION: Male, 58 years old with history of NAUSEA R11.0; Patient states belly and back p ain. NPO. TECHNIQUE: Multiple sonographic images of the abdomen are obtained. FINDINGS: EXAM MEASUREMENTS: Liver Length: 14.8 cm Gallbladder Wall: 0.2 cm CBD: 0.6 cm Spleen: 11.0 cm Right Kidney: 11.9 x 4.8 x 5.8 cm Left Kidney: 11.8 x 4.9 x 5.3 cm DEDENTER NOTES: Limited due to overlying bowel gas Pancreas: Obscured by bowel gas Liver: Scanned through ribs, limited Gallbladder: limited visualization, no stones or wall thickening seen Evidence for sonographic Monique's sign: neg CBD: wnl Spleen: wnl Right Kidney: No hydronephrosis or masses seen Left Kidney: No hydronephrosis or masses seen Upper IVC: Limited visualization Abd Aorta: Proximal obscured by overlying bowel gas IMPRESSION: 1. Normal gallbladder and biliary tree. 2. Probable fatty liver. 3. Pancreas obscured by bowel gas. 4 aorta obscured by bowel gas.
== END | disposition home or self-care (01) ==
LOC: RADUSWWP 15:42
PROVIDERS: ATTEND Family Medicine
DX: R11.0 Nausea (principal); R14.3 Flatulence
CPT/HCPCS: 76700

== ENCOUNTER 2024-10-05 03:54 | Inpatient (IN) | payer BC ==
[2024-10-05] MEDS ORDERED: HEPARIN SODIUM 1,000 UN/ML (10ML VL) IV PRN (03:57)
--- NOTE | 2024-10-05 04:05 | ED ---
General Adult HPI - General Stated complaint: Transfer for vascular Time Seen by Provider: 10/05/24 03:57 - History of Present Illness Initial comments: Dictation was produced using [employer] dictation software. please excuse any grammatical, word or spelling errors. Chief Complaint: 58-year-old male with history of peripheral vascular disease presents to the ER for distal aortic occlusion History of Present Illness: Patient is a 58-year-old male transferred from [facility]. Patient reports that starting around 9:30 PM last night he was at a go-cart event when he sat down. All of a sudden he felt numbness and tingling in his bilateral lower extremities. States that the last several hours has been intermittent worse in the right compared to the left. He has a history of iliac artery stents placed by Dr. Kim. Patient reports having had on and off symptoms for the last 3 days. Patient complain of some pain in his right knee. Case discussed with transferring physician, Dr. Cotter. States that patient had an elevated lactic acid level 5.6. Started on heparin. Apparently transferring ER physician had contacted vascular surgery at their facility and was told that patient should be sent to [facility] for further care. The ROS documented in this emergency department record has been reviewed and confirmed by me. Those systems with pertinent positive or negative responses have been documented in the HPI. All other systems are other negative and/or noncontributory. - Related Data Home Medications Medication Instructions Recorded Confirmed Multivitamins, Thera [Multivitamin 1 tab PO DAILY 11/18/22 03/27/23 (formulary)] Nature's Bounty Immune 24 Hr 1 tab PO DAILY 11/18/22 03/27/23 Atorvastatin [Lipitor] 40 mg PO HS 03/07/23 03/27/23 Clopidogrel [Plavix] 75 mg PO DAILY 03/07/23 03/27/23 Ezetimibe [Zetia] 10 mg PO DAILY 03/07/23 03/27/23 Ubidecarenone [Co Q-10] 100 mg PO DAILY 03/07/23 03/27/23 Previous Rx's Medication Instructions Recorded Aspirin 81 mg PO DAILY tab 11/22/22 Metoprolol Tartrate [Lopressor] 50 mg PO BID #180 tab 11/22/22 Nitroglycerin Sl Tabs [Nitrostat] 0.4 mg SUBLINGUAL Q5M PRN #25 tab 11/22/22 lisinopriL [Zestril] 5 mg PO BID #180 tab 11/22/22 Nitroglycerin Sl Tabs [Nitrostat] 0.4 mg SUBLINGUAL Q5M PRN tab 03/29/23 Allergies Allergy/AdvReac Type Severity Reaction Status Date / Time Penicillins Allergy Swelling Verified 10/05/24 03:56 at injection site Review of Systems ROS Statement: Those systems with pertinent positive or pertinent negative responses have been documented in the HPI. ROS Other: All systems not noted in ROS Statement are negative. Past Medical History Past Medical History: Hyperlipidemia, Hypertension, Myocardial Infarction ([place]), Vascular Disorder Additional Past Medical History / Comment(s): Peripheral Artery Disease. Last Myocardial Infarction Date:: 11/18/22 History of Any Multi-Drug Resistant Organisms: None Reported Past Surgical History: Heart Catheterization With Stent Additional Past Surgical History / Comment(s): Right fingers amputated, 1 stent to RCA, 1 stent in OM, lower extrmity angiogram with stent placement in the bilat LE. Past Anesthesia/Blood Transfusion Reactions: No Reported Reaction Additional Past Anesthesia/Blood Transfusion Reaction / Comment(s): No hx blood transfusions. Date of Last Stent Placement:: 11/18/22, 11-20-22 Past Psychological History: No Psychological Hx Reported Smoking Status: Former smoker Past Alcohol Use History: Occasional Past Drug Use History: None Reported - Past Family History Mother Family Medical History: Coronary Artery Disease (CAD), Pulmonary Embolus Father Family Medical History: Coronary Artery Disease (CAD) General Exam - General Exam Comments Initial Comments: PHYSICAL EXAM: General Impression: Alert and oriented x3, not in acute distress HEENT: Normocephalic atraumatic, extra-ocular movements intact, pupils equal and reactive to light bilaterally, mucous membranes moist. Cardiovascular: Heart regular rate and rhythm Chest: Able to complete full sentences, no retractions, no tachypnea Abdomen: abdomen soft, non-tender, non-distended, no organomegaly Musculoskeletal: absent pulses in the femoral, popliteal and dorsalis pedis pulses bilaterally, paler and poikilothermia of the lower extremities as well, no peripheral edema Motor: no focal deficits noted Neurological: CN II-XII grossly intact, no focal motor or sensory deficits noted Skin: Intact with no visualized rashes Psych: Normal affect and mood Course Vital Signs 10/05/24 03:57 Temperature 97.9 F Pulse Rate 80 Respiratory 18 Rate Blood Pressure 157/123 O2 Sat by Pulse 93 L Oximetry - Reevaluation(s) Reevaluation #1: 10/05/24 04:02 Case was discussed with Dr. Mehta request that we contact Dr. Kim given that patient had iliac artery stents by Dr. Kim. Medical Decision Making - Medical Decision Making Was pt. sent in by a medical professional or institution (, PA, OUTBOARD TECHNICIAN, urgent care, hospital, or alf...) When possible be specific @ -No Did you speak to anyone other than the patient for history (EMS, parent, family, police, friend...)? What history was obtained from this source @ -See above Did you review nursing and triage notes (agree or disagree)? Why? @ -I reviewed and agree with nursing and triage notes Were old charts reviewed (outside hosp., previous admission, EMS record, old EKG, old radiological studies, urgent care reports/EKG's, alf records)? Report findings @ -Previous charting was reviewed showing that patient had aortic stents placed by Dr. Kim in 2022 Differential Diagnosis (chest pain, altered mental status, abdominal pain women, abdominal pain men, vaginal bleeding, musculoskeletal, weakness, fever, dyspnea, syncope, headache, dizziness, GI bleed, back pain, seizure, CVA, palpatations, mental health)? @ -DVT, aortic occlusion, lower extremity cellulitis EKG interpreted by me (3pts min.). @ -None done X-rays interpreted by me (1pt min.). @ -None done CT interpreted by me (1pt min.). @ -None done U/S interpreted by me (1pt. min.). @ -None done What testing was considered but not performed or refused? (CT, X-rays, U/S, labs)? Why? @ -None What meds were considered but not given or refused? Why? @ -None Was smoking cessation discussed for >3mins.? @ -No Were there social determinants of health that impacted care today? How? (Homelessness, low income, unemployed, alcoholism, drug addiction, transportation, low edu. Level, literacy, decrease access to med. care, mcc, rehab)? @ -No Was there de-escalation of care discussed even if they declined (Discuss DNR or withdrawal of care, Hospice)? DNR status @ -No What co-morbidities impacted this encounter? (DM, HTN, Smoking, COPD, CAD, Cancer, CVA, ARF, Chemo, Hep., AIDS, mental health diagnosis, sleep apnea, morbid obesity)? @ -Peripheral arterial disease, pre-existing iliac artery stents Was patient admitted / discharged? Hospital course, mention meds given and route, prescriptions, significant lab abnormalities, going to OR and other pertinent info. @ -58-year-old male presents to the emergency department as a transfer from outside emergency department for distal aortic occlusion extending into the bilateral oral iliac artery stents. Vital signs upon arrival are within acceptable limits. Transfer documentation reviewed showing the patient had a lactic acidosis of 5. Presents to us on heparin. Patient well-appearing at the bedside complains of some paresthesias to his lower extremities. Does complain of some mild right pain. Otherwise he is in no acute distress. Case discussed with vascular surgery request that we contact Dr. Kim who was the primary teacher for the iliac artery stents. Case discussed with cardiology Dr. Tyler olmstead states that patient should be admitted and cardiology will take care of it in the morning. Patient be admitted to the ICU. Case discussed with Dr. Morocho for ICU admission. Case discussed with hospitalist for admission Did you discuss the management of the patient with other professionals (professionals i.e. , PA, OUTBOARD TECHNICIAN, lab, RT, psych nurse, clinical social worker, mainframe programmer, teacher, business enterprise officer, catalytic case operator)? Give summary @ -See above Was critical care preformed (if so, how long)? @ -Yes, 33 minutes Undiagnosed new problem with uncertain prognosis? @ -No Drug Therapy requiring intensive monitoring for toxicity (Heparin, Nitro, Insulin, Cardizem)? @ -No Were any procedures done? @ -No Diagnosis/symptom? Acute, or Chronic, or Acute on Chronic? Uncomplicated (without systemic symptoms) or Complicated (systemic symptoms)? @ -Acute, uncomplicated distal aortic occlusion Side effects of treatment? @ -No Exacerbation, Progression, or Severe Exacerbation? @ -No Poses a threat to life or bodily function? How? (Chest pain, [place], [place], pneumonia, PE, COPD, DKA, ARF, appy, cholecystitis, CVA, Diverticulitis, Homicidal, Suicidal, threat to staff... and all critical care pts) @ -yes Disposition Clinical Impression: Aortic occlusion Disposition: ADMITTED IP TO THIS HOSP Condition: Critical Referrals: Levon Martinez DO [Primary Care Provider] - 1-2 days Decision Time: 04:29
[2024-10-05] MEDS: SODIUM CHLORIDE 0.9% 1,000 ML IV STA (04:10)
[2024-10-05] MEDS ORDERED: NALOXONE 0.4 MG/ML 1 ML VIAL IV PRN (04:25)
[2024-10-05 04:30] LABS: Basophils % (A) 0 %; Eosinophils # (A) 0.1 k/uL (0-0.7); Eosinophils % (A) 0 %; HCT 41.9 % (39.0-53.0); HGB 13.8 gm/dL (13.0-17.5); Lymphocytes # (A) 1.2 k/uL (1.0-4.8); Lymphocytes % (A) 8 %; MCH 27.7 pg (25.0-35.0); MCHC 32.9 g/dL (31.0-37.0); MCV 84.3 fL (80.0-100.0); Mean Platelet Volume 7.9; Monocytes # (A) 0.5 k/uL (0-1.0); Monocytes % (A) 3 %; Neutrophils # (A) 14.1 k/uL (1.3-7.7); Neutrophils % (A) 88 %; Platelet Count 203 k/uL (150-450); RBC 4.97 m/uL (4.30-5.90); RDW 14.3 % (11.5-15.5); WBC 15.9 k/uL (3.8-10.6)
[2024-10-05] MEDS: HYDROmorphone 1 MG/ML 1 ML SYRINGE IVP STA (04:36)
[2024-10-05 04:38] LABS: INR 1.1 (<1.2); Partial Thromboplastin Time 49.5 sec (22.0-30.0); Prothrombin Time 11.8 sec (10.0-12.5)
[2024-10-05] MEDS: HEPARIN SOD,PORK IN 0.45% NACL 25,000 UNIT in 0.45% NACL 1 250ML.BAG IV SCH (04:42)
[2024-10-05 04:44] LABS: African American GFR (CKD) >90 (>60 ml/min/1.73 sqM); Anion Gap 11 mmol/L; Blood Urea Nitrogen 14 mg/dL (9-20); Calcium 7.9 mg/dL (8.4-10.2); Carbon Dioxide 21 mmol/L (22-30); Chloride 105 mmol/L (98-107); Glucose 151 mg/dL (74-99); Non-African American GFR(CKD) >90 (>60 ml/min/1.73 sqM); Potassium 4.5 mmol/L (3.5-5.1); Sodium 137 mmol/L (137-145)
[2024-10-05] MEDS: SODIUM CHLORIDE 0.9% 1,000 ML IV SCH (04:44)
[2024-10-05] MEDS: HYDROmorphone 0.5 MG/0.5 ML SYRINGE IVP PRN ×2 (07:38→23:38)
--- NOTE | 2024-10-05 08:05 | P.HPIM ---
History of Present Illness This is a pleasant 58 years old male with past medical history of multiple medical problems as below. He has history of peripheral vascular disease s/p 2 stents in his legs with Dr. Kim and history of coronary artery disease status post 2 stents in his heart with Dr. Billy. Presents because of numbness in his both lower extremity started last night associated with weakness, patient states could not move and he cannot control his legs and mainly bothering him is the numbness in both legs from the lower waist down and also in his buttocks. This is associated with cramps in his legs which hurt and him requiring pain medic ation. Patient denies back pain or falling. No specific GI/ symptoms. No chest pain or dyspnea. No headache dizziness or upper extremity symptoms like weakness or numbness Patient denies smoking alcohol or illicit drugs. Patient first went to [facility] and then they transferred him to this facility for higher level of care for vascular team consultation. Patient already started on heparin drip and cardiac consult was requested from ER. On reviewing the transfer records CT of the chest and abdomen and pelvis with and without contrast: Severe atherosclerotic vascular disease with complete occlusion of the infrarenal abdominal aorta and bilateral common iliac stents of uncertain chronicity. There is reconstitution of flow in bilateral external iliac arteries and the imaged femoral arteries. No thoracic or abdominal aortic aneurysm or dissection is identified. Also patient with evidence of diminishing strength decreased capillary fill in both feet and no Doppler pulses in right foot with only faintly Doppler pulses on the left foot. The doctor the vascular team at their hospital and because he is a patient of Dr. Kim patient was transferred to this facility. EKG showing sinus rhythm at [address]-T changes Creatinine 1.19. Glucose 200, potassium 3.7, sodium 141. Alcohol less than 0.01%. Troponin is negative less than 0.010. Hemoglobin 15.2, WBC 16.1. Lactate is elevated at 5.6. INR 1.1. Of Review of Systems Review of systems CONSTITUTIONAL: No fever, no malaise, no fatigue. HEENT: No recent visual problems or hearing problems. Denied any sore throat. CARDIOVASCULAR: No orthopnea, PND, no palpitations, no syncope. PULMONARY: No shortness of breath, no cough, no hemoptysis. GASTROINTESTINAL: No diarrhea, no nausea, no vomiting, no abdominal pain. Normoactive bowel sounds. NEUROLOGICAL: No headaches, no dizziness, no upper extremity weakness or numbness HEMATOLOGICAL: Denies any bleeding or petechiae. GENITOURINARY: Denies any burning micturition, frequency, or urgency. MUSCULOSKELETAL/RHEUMATOLOGICAL: Denies any joint pain, swelling, or any muscle pain. ENDOCRINE: Denies any polyuria or polydipsia. Past Medical History Past Medical History: Hyperlipidemia, Hypertension, Myocardial Infarction ([place]), Vascular Disorder Additional Past Medical History / Comment(s): Peripheral Artery Disease. Last Myocardial Infarction Date:: 11/18/22 History of Any Multi-Drug Resistant Organisms: None Reported Past Surgical History: Heart Catheterization With Stent Additional Past Surgical History / Comment(s): Right fingers amputated, 1 stent to RCA, 1 stent in OM, lower extrmity angiogram with stent placement in the bilat LE. Past Anesthesia/Blood Transfusion Reactions: No Reported Reaction Additional Past Anesthesia/Blood Transfusion Reaction / Comment(s): No hx blood transfusions. Date of Last Stent Placement:: 11/18/22, 11-20-22 Past Psychological History: No Psychological Hx Reported Smoking Status: Former smoker Past Alcohol Use History: Occasional Past Drug Use History: None Reported - Past Family History Mother Family Medical History: Coronary Artery Disease (CAD), Pulmonary Embolus Father Family Medical History: Coronary Artery Disease (CAD) Medications and Allergies Home Medications Medication Instructions Recorded Confirmed Type Multivitamins, Thera [Multivitamin 1 tab PO DAILY 11/18/22 03/27/23 History (formulary)] Nature's Bounty Immune 24 Hr 1 tab PO DAILY 11/18/22 03/27/23 History Aspirin 81 mg PO DAILY tab 11/22/22 03/28/23 Rx Metoprolol Tartrate [Lopressor] 50 mg PO BID #180 tab 11/22/22 03/27/23 Rx Nitroglycerin Sl Tabs [Nitrostat] 0.4 mg SUBLINGUAL Q5M PRN #25 tab 11/22/22 03/27/23 Rx lisinopriL [Zestril] 5 mg PO BID #180 tab 11/22/22 03/27/23 Rx Atorvastatin [Lipitor] 40 mg PO HS 03/07/23 03/27/23 History Clopidogrel [Plavix] 75 mg PO DAILY 03/07/23 03/27/23 History Ezetimibe [Zetia] 10 mg PO DAILY 03/07/23 03/27/23 History Ubidecarenone [Co Q-10] 100 mg PO DAILY 03/07/23 03/27/23 History Nitroglycerin Sl Tabs [Nitrostat] 0.4 mg SUBLINGUAL Q5M PRN tab 03/29/23 Rx Allergies Allergy/AdvReac Type Severity Reaction Status Date / Time Penicillins Allergy Swelling Verified 10/05/24 03:56 at injection site Physical Exam Vitals: Vital Signs Temp Pulse Resp BP Pulse Ox 10/05/24 06:00 64 16 137/78 94 L 10/05/24 05:03 73 18 142/68 94 L 10/05/24 03:57 97.9 F 80 18 157/123 93 L Intake and Output 10/04/24 10/05/24 10/05/24 22:59 06:59 14:59 Other: Weight 113.897 kg GENERAL: The patient is alert and oriented x3, not in any acute distress. Well developed, well nourished. HEENT: Pupils are round and equally reacting to light. EOMI. No scleral icterus. No conjunctival pallor. Normocephalic, atraumatic. No pharyngeal erythema. No thyromegaly. CARDIOVASCULAR: S1 and S2 present. No murmurs, rubs, or gallops. PULMONARY: Chest is clear to auscultation, no wheezing , no crackles. ABDOMEN: Soft, nontender, nondistended, normoactive bowel sounds. No palpable organomegaly. MUSCULOSKELETAL: No joint swelling or deformity. -EXTREMITIES: No cyanosis, clubbing, or pedal edema. Both lower extremities are weak and cold to touch and there is mild discoloration, bluish of the right toe and distal forefoot. Associated with difficulty moving both upper extremity except for mild dorsi/plantarflexion and knee flexion NEUROLOGICAL: Gross neurological examination did not reveal any focal deficits. SKIN: No rashes. no petechiae. Results CBC & Chem 7: 10/05/24 04:10 10/05/24 04:10 Labs: Abnormal Lab Results - Last 24 Hours (Table) 10/05/24 10/05/24 10/05/24 Range/Units 04:10 04:10 04:10 WBC 15.9 H (3.8-10.6) k/uL Neutrophils # 14.1 H (1.3-7.7) k/uL APTT 49.5 H (22.0-30.0) sec Carbon Dioxide 21 L (22-30) mmol/L Glucose 151 H (74-99) mg/dL Calcium 7.9 L (8.4-10.2) mg/dL Assessment and Plan Assessment: Bilateral lower extremity limb ischemia, severe. Secondary to complete occlusion of the infra renal abdominal aorta and bilateral common iliac stents of uncertain chronicity. Severe atherosclerotic disease Leukocytosis Coronary artery disease status post stents. Elevated lactic acid Hypertension Hyperlipidemia Plan: Continue with heparin drip Pain management Continue with IV hydration Cardiology team were already consulted for occluded artery. Patient admitted to the ICU with pulmonary/critical care team consult Labs and medication were reviewed.. Continue same treatment. Continue with symptomatic treatment. Resume home medication. Monitor labs and vitals. DVT and GI prophylaxis. Further recommendations as per clinical course of the patient DVT prophylaxis: heparin GI Prophylaxis: Pepcid PT/OT: Deferred Prognosis is guarded
[2024-10-05] MEDS ORDERED: ALPRAZolam 0.5 MG TAB PO PRN (08:59)
[2024-10-05] MEDS ORDERED: ZOLPIDEM 5 MG TAB PO PRN (08:59)
[2024-10-05] MEDS ORDERED: ALPRAZolam 0.25 MG TAB PO PRN (08:59)
[2024-10-05] MEDS: SODIUM CHLORIDE 0.9% 1,000 ML in EMPTY BAG 1 BAG IV ONE (09:30)
[2024-10-05] MEDS: MIDAZOLAM 2 MG/2 ML VIAL IVP ONE ×2 (10:28→10:54)
[2024-10-05] MEDS: LIDOCAINE 1% INJ 10MG/ML (20 ML MDV) SQ ONE ×2 (10:29)
[2024-10-05] MEDS: IV FLUID CONTINUATION 1,000 ML IV ONE (10:38)
[2024-10-05] MEDS: fentaNYL (PF) 50 MCG/1 ML VIAL IVP ONE (10:53)
[2024-10-05] MEDS: HEPARIN SODIUM 1,000 UN/ML (10ML VL) IV ONE (10:54)
[2024-10-05] MEDS ORDERED: NALOXONE 0.4 MG/ML 1 ML VIAL IVP PRN (11:53)
--- NOTE | 2024-10-05 12:03 | P.PCN ---
Date of Procedure: 10/05/24 Operative Findings: PERCUTANEOUS PERIPHERAL INTERVENTION Performing physician Archie Michael M.D. Procedure performed 1. An aspiration thrombectomy from the infrarenal aorta and bilateral common iliac arteries using the penumbra 2. An abdominal aorta and bilateral common iliac angiogram 3. Placement of infusion catheter in the infrarenal aorta and bilateral common iliac arteries 4. Ultrasound-guided access of bilateral common femoral arteries Indication An acute limb ischemia of bilateral lower extremities in this 58-year-old gentleman who is known to have PAD with prior angioplasty and stenting of bilateral common iliac arteries 18 months ago. He presented into a different facility and underwent a CTA which showed occluded infrarenal aorta and occluded bilateral iliac arteries. The symptoms started 24 hours ago Approach Right and left common femoral artery Complications None Level of sedation Moderate with a sedation time of 79 minutes Procedure description After obtaining informed consent the patient was brought to the cardiac Production Expert. The right and left common femoral arteries were cannulated using micropuncture technique under ultrasound guidance a micropuncture wire passed easily then I initially placed a 5 [place] sheath at the right common femoral artery and subsequently after angiogram was performed I upgraded the sheath into a 7 [place] 11 cm Brite tip sheath was placed in both right and left common femoral arteries. Initially I did perform an aortogram and bilateral iliac angiogram using 5 [place] pigtail catheter which was placed below the takeoff of the renal arteries. The angiogram revealed occluded infrarenal aorta and occluded bilateral common iliac arteries with reconstitution by the external iliac arteries bilaterally. At that point I upgraded my sheath into a 7 [place] 11 cm sheath on both sides. After that I did aspiration thrombectomy using the penumbra device and that was a 7 [place] system and I did aspiration from the infrarenal aorta and bilateral common iliac arteries as well. An angiogram was performed after that showed significant improvement in the flow with the residual thrombus was identified in the infrarenal aorta as well as bilateral common iliac arteries. I decided to place an tPA infusion catheter on both sides for the residual thrombus. I did place infusion catheter over a 035 wire. The infusion catheter subsequently will be secured to the groin/skin and the patient will be brought back for a second look angiogram in the next 24 hours. Postprocedure management 1. Monitor the hemoglobin 2. tPA infusion protocol 3. Bring the patient for second look angiogram in the next 24 hours
[2024-10-05] MEDS: HEPARIN SODIUM,PORCINE 10,000 UNIT in SODIUM CHLORIDE 0.9% 1,000 ML IRRIGATION PRN (12:19)
[2024-10-05] MEDS: HEPARIN SODIUM,PORCINE (1 ML) 2,500 UNIT in SODIUM CHLORIDE 0.9% 250 ML IRRIGATION PRN (12:20)
[2024-10-05] MEDS: ALTEPLASE 10 MG in SODIUM CHLORIDE 0.9% 90 ML IA ONE ×2 (12:20)
--- NOTE | 2024-10-05 12:20 | P.CRDCN ---
History of Present Illness Consult date: 10/05/24 Reason for Consult (text): PAD History of present illness: Patient is a 58-year-old male who follows in the office with Dr. Billy. Patient was at a basketball game in [place] when he developed acute onset of numbness and pain in his lower extremities. He was unable to stand and walk. He went to a local hospital where he was found to have an occlusion of his distal aorta into his bilateral iliac stents. 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 Michael. DIAGNOSTICS: CT lumbar spine without contrast: Multilevel lumbar degenerative disc change with spondylosis, spinal canal stenosis most severe at L4-L5 CT chest abdomen and pelvis with and without contrast: Severe atherosclerotic vascular disease with complete occlusion of the infrarenal abdominal aorta and bilateral common iliac stents. Reconstitution of flow in the bilateral external iliacs and femoral arteries. No thoracic abdominal aortic aneurysm or dissection. : WBC 15.9, hemoglobin 13.8, hematocrit 41.9, platelet 203, sodium 137, potassium 4.5, BUN 14, creatinine 0.79 REVIEW OF SYSTEMS: No fever or chills. No cough or expectoration. No diaphoresis. Patient denies headache, dizziness, blurred vision, double vision. Patient denies any stomach discomfort. No nausea, vomiting. No hematochezia. No hematemesis. Denies any black stools or blood in his stools. Denies dysuria or hematuria. No muscle weakness or numbness. Denies chest pain or pressure. No difficulty breathing. Positive for lower extremity discomfort with movement. PHYSICAL EXAMINATION: This is a 58-year-old male in no apparent distress at the time of my examination. HEENT: Head is atraumatic, normocephalic. Pupils are equal, round. Sclerae anicteric. Conjunctivae are clear. Mucous membranes of the mouth are moist. Neck is supple. There is no jugular venous distention. No carotid bruit is heard. CHEST EXAMINATION: Lungs are clear to auscultation. No chest wall tenderness is noted on palpation or with deep breathing. HEART EXAMINATION: Heart regular rate and rhythm. S1, S2 heard. No murmurs, gallops or rub. ABDOMEN: Soft, nontender. Bowel sounds are heard. No organomegaly noted. EXTREMITIES: Absent peripheral pulses. Dusky appearance, cool to touch. NEUROLOGIC EXAMINATION: Patient is awake, alert and oriented x3. FINAL ASSESSMENT AND PLAN: Infrarenal abdominal aortic occlusion with occluded iliac stents History of peripheral vascular disease, bilateral iliac stenting with Dr. Michael in March 2023 Lumbar spondylosis and stenosis History of CAD Hypertension Hyperlipidemia Former smoker PLAN: Continue heparin drip Home medications including Zetia, metoprolol, lisinopril, and Lipitor Proceed with aortogram and runoff with Dr. Kim Consider orthopedic consult if patient continues to have seizures and limited mobility in his right lower extremity Further recommendations to be made thereafter I am dictating on behalf of Dr Karthik Chávez's history/physical and assessment/plan. Past Medical History Past Medical History: Hyperlipidemia, Hypertension, Myocardial Infarction (DC), Vascular Disorder Additional Past Medical History / Comment(s): Peripheral Artery Disease. Last Myocardial Infarction Date:: 11/18/22 History of Any Multi-Drug Resistant Organisms: None Reported Past Surgical History: Heart Catheterization With Stent Additional Past Surgical History / Comment(s): Right fingers amputated, 1 stent to RCA, 1 stent in OM, lower extrmity angiogram with stent placement in the bilat LE. Past Anesthesia/Blood Transfusion Reactions: No Reported Reaction Additional Past Anesthesia/Blood Transfusion Reaction / Comment(s): No hx blood transfusions. Date of Last Stent Placement:: 11/18/22, 11-20-22 Past Psychological History: No Psychological Hx Reported Smoking Status: Former smoker Past Alcohol Use History: Occasional Past Drug Use History: None Reported - Past Family History Mother Family Medical History: Coronary Artery Disease (CAD), Pulmonary Embolus Father Family Medical History: Coronary Artery Disease (CAD) Medications and Allergies Home Medications Medication Instructions Recorded Confirmed Type Multivitamins, Thera [Multivitamin 1 tab PO DAILY 11/18/22 10/05/24 History (formulary)] Nature's Bounty Immune 24 Hr 1 tab PO DAILY 11/18/22 10/05/24 History Aspirin 81 mg PO DAILY tab 11/22/22 10/05/24 Rx Metoprolol Tartrate [Lopressor] 50 mg PO BID #180 tab 11/22/22 10/05/24 Rx lisinopriL [Zestril] 5 mg PO BID #180 tab 11/22/22 10/05/24 Rx Ezetimibe [Zetia] 10 mg PO DAILY 03/07/23 10/05/24 History Nitroglycerin Sl Tabs [Nitrostat] 0.4 mg SUBLINGUAL Q5M PRN tab 03/29/23 10/05/24 Rx Atorvastatin [Lipitor] 40 mg PO HS 10/05/24 10/05/24 History Allergies Allergy/AdvReac Type Severity Reaction Status Date / Time Penicillins Allergy Swelling Verified 10/05/24 09:03 at injection site/RASH/HIVES Physical Exam Vitals: Vital Signs Temp Pulse Resp BP Pulse Ox 10/05/24 06:00 64 16 137/78 94 L 10/05/24 05:03 73 18 142/68 94 L 10/05/24 03:57 97.9 F 80 18 157/123 93 L Intake and Output 10/04/24 10/05/24 10/05/24 22:59 06:59 14:59 Other: Weight 113.897 kg Results 10/05/24 04:10 10/05/24 04:10 Coagulation 10/05/24 Range/Units 04:10 PT 11.8 (10.0-12.5) sec APTT 49.5 H (22.0-30.0) sec CBC 10/05/24 Range/Units 04:10 WBC 15.9 H (3.8-10.6) k/uL RBC 4.97 (4.30-5.90) m/uL Hgb 13.8 (13.0-17.5) gm/dL Hct 41.9 (39.0-53.0) % Plt Count 203 (150-450) k/uL Comprehensive Metabolic Panel 10/05/24 Range/Units 04:10 Sodium 137 (137-145) mmol/L Potassium 4.5 (3.5-5.1) mmol/L Chloride 105 (98-107) mmol/L Carbon Dioxide 21 L (22-30) mmol/L BUN 14 (9-20) mg/dL Creatinine 0.79 (0.66-1.25) mg/dL Glucose 151 H (74-99) mg/dL Calcium 7.9 L (8.4-10.2) mg/dL Current Medications Generic Name Dose Route Start Last Admin Trade Name Freq PRN Reason Stop Dose Admin Heparin Sodium (Porcine) 0 unit 10/05/24 03:57 Heparin Sodium 1,000 Un/Ml (10ml Vl) IV PER PROTOCOL PRN Low PTT Protocol Hydromorphone HCl 0.5 mg 10/05/24 07:30 Hydromorphone 0.5 Mg/0.5 Ml Syringe IVP Q3HR PRN Pain Heparin Sodium/Sodium Chloride 250 mls @ 13.668 mls/hr 10/05/24 04:00 10/05/24 04:42 25,000 unit/ Sodium Chloride IV 12 units/kg/hr .[id number] DIVYA 13.668 mls/hr Administration Protocol 12 UNITS/KG/HR Sodium Chloride 1,000 mls @ 130 mls/hr 10/05/24 04:30 10/05/24 04:44 Saline 0.9% IV 130 mls/hr .[id number] DIVYA Administration Naloxone HCl 0.2 mg 10/05/24 04:25 Naloxone 0.4 Mg/Ml 1 Ml Vial IV Q2M PRN Opioid Reversal Intake and Output 10/04/24 10/05/24 10/05/24 22:59 06:59 14:59 Other: Weight 113.897 kg 10/05/24 04:10 10/05/24 04:10
[2024-10-05] MEDS: HEPARIN SOD,PORK IN 0.45% NACL 25,000 UNIT in 0.45% NACL 1 250ML.BAG IV ONE ×2 (12:21)
[2024-10-05] MEDS: IOPAMIDOL-370 100ML BTL INTRATHECA ONE (12:22)
--- NOTE | 2024-10-05 12:38 | P.CNPUL ---
History of Present Illness Consult date: 10/05/24 Requesting physician: Schuyler Clay Reason for consult: other (ICU admission and ICU management) Chief complaint: Numbness and weakness in both lower extremities. History of present illness: This is a 58-year-old white male with history of coronary artery disease and previous stents placed in RCA and obtuse marginal branch. history of severe peripheral vessel occlusive disease and had previous stents to the right and left common iliac arteries back on 03/28/[address] Kim. Patient was treated with dual antiplatelet therapy, and he was also treated aggressively for cholesterol control. Patient has been doing well over the last year and a half, presented last night to [facility] in [place] and he was complaining of numbness and weakness in both lower extremities. Clearly the patient had findings of ischemia to both lower extremities. However the patient was transferred to [facility] to be evaluated by Dr. Kim. Today the patient underwent aspiration thrombectomy from the infrarenal aorta and bilateral common iliac arteries using penumbra, he also had abdominal aorta and bilateral common iliac angiograms. He had placement of the infusion catheter in the infrarenal aorta and bilateral common iliac arteries. The recommendation was to transfer the patient to the ICU after this procedure. And he will be closely monitored, he will go on the tPA infusion protocol. And will continue to monitor hemoglobin closely. May have another look by Dr. Kim in the next 24 hours. During my evaluation, the patient had no chest pain, no sh ortness of breath, no cough, no wheezing, and on physical examination his feet were both cold, but not bluish in color, and he had no palpable pulses from the groin all the way down to both feet. WBC count 15.9 hemoglobin 13.8 PTT 49.5 D- dimer 0.74 electrolytes are normal renal profile is normal Review of Systems CONSTITUTIONAL: Negative HEENT: Negative CARDIOVASCULAR: As noted in HPI PULMONARY: No shortness of breath, no cough, no hemoptysis. GASTROINTESTINAL: Negative NEUROLOGICAL: Negative HEMATOLOGICAL: Negative GENITOURINARY: Denies any burning micturition, frequency, or urgency. MUSCULOSKELETAL/RHEUMATOLOGICAL: Denies any joint pain, swelling, or any muscle pain. ENDOCRINE: Negative Past Medical History Past Medical History: Hyperlipidemia, Hypertension, Myocardial Infarction (PR), Vascular Disorder Additional Past Medical History / Comment(s): Peripheral Artery Disease. Last Myocardial Infarction Date:: 11/18/22 History of Any Multi-Drug Resistant Organisms: None Reported Past Surgical History: Heart Catheterization With Stent Additional Past Surgical History / Comment(s): Right fingers amputated, 1 stent to RCA, 1 stent in OM, lower extrmity angiogram with stent placement in the bilat LE. Past Anesthesia/Blood Transfusion Reactions: No Reported Reaction Additional Past Anesthesia/Blood Transfusion Reaction / Comment(s): No hx blood transfusions. Date of Last Stent Placement:: 11/18/22, 11-20-22 Past Psychological History: No Psychological Hx Reported Smoking Status: Former smoker Past Alcohol Use History: Occasional Past Drug Use History: None Reported - Past Family History Mother Family Medical History: Coronary Artery Disease (CAD), Pulmonary Embolus Father Family Medical History: Coronary Artery Disease (CAD) Medications and Allergies Home Medications Medication Instructions Recorded Confirmed Type Multivitamins, Thera [Multivitamin 1 tab PO DAILY 11/18/22 10/05/24 History (formulary)] Nature's Bounty Immune 24 Hr 1 tab PO DAILY 11/18/22 10/05/24 History Aspirin 81 mg PO DAILY tab 11/22/22 10/05/24 Rx Metoprolol Tartrate [Lopressor] 50 mg PO BID #180 tab 11/22/22 10/05/24 Rx lisinopriL [Zestril] 5 mg PO BID #180 tab 11/22/22 10/05/24 Rx Ezetimibe [Zetia] 10 mg PO DAILY 03/07/23 10/05/24 History Nitroglycerin Sl Tabs [Nitrostat] 0.4 mg SUBLINGUAL Q5M PRN tab 03/29/23 10/05/24 Rx Atorvastatin [Lipitor] 40 mg PO HS 10/05/24 10/05/24 History Allergies Allergy/AdvReac Type Severity Reaction Status Date / Time Penicillins Allergy Swelling Verified 10/05/24 09:03 at injection site/RASH/HIVES Physical Exam Vitals: Vital Signs Temp Pulse Resp BP Pulse Ox 10/05/24 09:30 92 20 142/82 94 L 10/05/24 09:00 99 19 177/95 93 L 10/05/24 08:00 78 17 142/77 93 L 10/05/24 06:00 64 16 137/78 94 L 10/05/24 05:03 73 18 142/68 94 L 10/05/24 03:57 97.9 F 80 18 157/123 93 L Intake and Output 10/04/24 10/05/24 10/05/24 22:59 06:59 14:59 Intake Total 108 Balance 108 Intake: IV 108 Other: Weight 113.897 kg GENERAL: Revealed a very pleasant 58-year-old white male in no distress Head: Atraumatic normocephalic HEENT: Pupils are round and equally reacting to light. EOMI. No scleral icterus. No conjunctival pallor. Normocephalic, atraumatic. No pharyngeal erythema. No thyromegaly. CARDIOVASCULAR: Normal S1-S2, no S3 gallop, no murmur PULMONARY: Clear throughout no crackles rhonchi or wheezes ABDOMEN: Obese, soft, nontender, nondistended, normoactive bowel sounds. No palpable organomegaly. MUSCULOSKELETAL: No joint swelling or deformity. EXTREMITIES: No cyanosis, clubbing, or pedal edema. No palpable pulses in lower extremities bilaterally both feet were cold but noncyanotic. NEUROLOGICAL: Alert oriented x 3 no gross focal deficit SKIN: No rashes. no petechiae. Cold feet bilaterally. Results - Laboratory Findings CBC and BMP: 10/05/24 04:10 10/05/24 04:10 PT/INR, D-dimer PT 11.8 sec (10.0-12.5) 10/05/24 04:10 INR 1.1 (<1.2) 10/05/24 04:10 Abnormal lab findings: Abnormal Labs 10/05/24 10/05/24 10/05/24 04:10 04:10 04:10 WBC 15.9 H Neutrophils # 14.1 H APTT 49.5 H Carbon Dioxide 21 L Glucose 151 H Calcium 7.9 L Assessment and Plan Assessment: Impression: Acute bilateral limb ischemia secondary to complete occlusion of the infrarenal abdominal aorta and bilateral common iliac arteries. Status post aspiration thrombectomy from the infrarenal aorta and bilateral common iliac arteries using the penumbra, and placement of infusion catheter in the infrarenal aorta and bilateral common iliac arteries postoperative day #0. History of severe peripheral vessel occlusive disease and previous bilateral iliac stenting in 2022 History of coronary artery disease and previous stents Benign essential hypertension Dyslipidemia Ex-smoker Recommendation: Admit patient to ICU Continue tPA infusion as recommended by [employer] piping designer Continue to monitor hemoglobin and hematocrit and daily labs Resume home meds including statins Patient will go back on dual antiplatelet therapy after her tPA infusion this will be decided upon by interventional cardiology. Continue IV fluid at 75 cc/h Will continue to follow. . Time with Patient: Greater than 30
[2024-10-05 12:46] LABS: Glucose,Whole Blood 98 mg/dL (70-110)
[2024-10-05 13:08] LABS: HCT 37.9 % (39.0-53.0); HGB 12.6 gm/dL (13.0-17.5); MCHC 33.2 g/dL (31.0-37.0); MCV 84.5 fL (80.0-100.0); Mean Platelet Volume 7.7; Platelet Count 219 k/uL (150-450); RBC 4.49 m/uL (4.30-5.90); RDW 14.4 % (11.5-15.5); WBC 16.6 k/uL (3.8-10.6)
[2024-10-05] MEDS: SODIUM CHLORIDE 0.9% 1,000 ML in EMPTY BAG 1 BAG IV SCH (13:49)
[2024-10-05 14:14] LABS: African American GFR (CKD) >90 (>60 ml/min/1.73 sqM); Anion Gap 8 mmol/L; Blood Urea Nitrogen 11 mg/dL (9-20); Calcium 8.2 mg/dL (8.4-10.2); Carbon Dioxide 24 mmol/L (22-30); Chloride 105 mmol/L (98-107); Glucose 87 mg/dL (74-99); Non-African American GFR(CKD) >90 (>60 ml/min/1.73 sqM); Sodium 137 mmol/L (137-145)
[2024-10-05] MEDS: METOPROLOL TARTRATE 50 MG TAB PO SCH (20:38)
[2024-10-05] MEDS: lisinopriL 5 MG TAB PO SCH (20:38)
[2024-10-05] MEDS: ATORVASTATIN 40 MG TAB PO SCH (20:38)
[2024-10-06 06:21] LABS: Basophils % (A) 0 %; Eosinophils # (A) 0.2 k/uL (0-0.7); Eosinophils % (A) 1 %; HCT 37.9 % (39.0-53.0); HGB 12.5 gm/dL (13.0-17.5); Lymphocytes # (A) 1.8 k/uL (1.0-4.8); Lymphocytes % (A) 16 %; MCH 27.9 pg (25.0-35.0); MCHC 33.1 g/dL (31.0-37.0); MCV 84.4 fL (80.0-100.0); Mean Platelet Volume 7.7; Monocytes # (A) 0.8 k/uL (0-1.0); Monocytes % (A) 7 %; Neutrophils # (A) 8.4 k/uL (1.3-7.7); Neutrophils % (A) 73 %; Platelet Count 185 k/uL (150-450); RBC 4.49 m/uL (4.30-5.90); RDW 14.1 % (11.5-15.5); WBC 11.5 k/uL (3.8-10.6)
--- NOTE | 2024-10-06 06:21 | P.PCN ---
Date of Procedure: 10/06/24 Operative Findings: The patient is a 58-year-old gentleman with a past medical history significant for CAD and PAD with prior angioplasty and stenting of bilateral iliac arteries was admitted to the hospital with evidence of acute limb ischemia with bilateral lower extremities discomfort started 24 hours before he presented to the hospital. He underwent a CTA of the abdomen and pelvis in different hospital and that showed occluded infrarenal aorta with occluded bilateral iliac arteries with reconstitution just by the external iliac arteries bilaterally with the patient underwent subsequently aspiration thrombectomy which was mechanical and he was placed on tPA infusion bilaterally. October 06, 2024 The patient was seen and evaluated this morning. He is overall feeling better. The bilateral lower extremities/feet numbness has improved significantly and now I can feel good bilateral posterior tibial pulses. The tPA infusion continues and the plan to take the patient for second look angiogram to assess the residual thrombus after aspiration thrombectomy yesterday. Otherwise he is asymptomatic. Hemodynamically he is stable. We are monitoring the hemoglobin and kidney function and PTT as well. The physical examination is remarkable for regular rhythm with diminished breathing sounds bilaterally and good bilateral posterior tibial pulses Assessment Acute limb ischemia of bilateral lower extremities Thrombotic occlusion of the infrarenal aorta and bilateral common iliac arteries Status post aspiration thrombectomy which was mechanical Multiple comorbid conditions Plan Continue the current medical regimen Consider prolonged antiplatelet/anticoagulation treatment as an outpatient Continue statin and increase the dose to be a high intensity Continue monitor the hemoglobin and PTT Second look angiogram to be performed later on today
[2024-10-06] MEDS ORDERED: ASPIRIN 325 MG TAB PO PRN (07:00)
[2024-10-06] MEDS: EZETIMIBE 10 MG TAB PO SCH (08:09)
[2024-10-06] MEDS: MULTIVITAMINS, THERA 1 EACH TAB PO SCH (08:09)
--- NOTE | 2024-10-06 08:21 | IR ---
EXAMINATION TYPE: IR transcath embolization therapy DATE OF EXAM: 10/05/2024 CLINICAL INDICATION: Male, 58 years old with history of OCCLUDED AORTA, TECHNIQUE: Fluoroscopy. COMPARISON: None. FINDINGS: Fluoroscopic guidance was provided during angiogram with transcatheter embolization proced ure performed by Dr. Michael. A total of 17.7 minutes of fluoroscopic time was utilized during the proc edure and 131 spot images are acquired. TOTAL DAP = 36.8 Gy x cm2. IMPRESSION: As Above. [facility], , 10/06/2024 8:19 AM
[2024-10-06 08:37] LABS: African American GFR (CKD) >90 (>60 ml/min/1.73 sqM); Anion Gap 3 mmol/L; Blood Urea Nitrogen 8 mg/dL (9-20); Calcium 7.8 mg/dL (8.4-10.2); Carbon Dioxide 26 mmol/L (22-30); Chloride 108 mmol/L (98-107); Glucose 112 mg/dL (74-99); Non-African American GFR(CKD) >90 (>60 ml/min/1.73 sqM); Potassium 3.9 mmol/L (3.5-5.1); Sodium 137 mmol/L (137-145)
[2024-10-06] MEDS: HEPARIN SOD,PORK IN 0.45% NACL 25,000 UNIT in 0.45% NACL 1 250ML.BAG IV SCH ×2 (09:01)
[2024-10-06] MEDS: SODIUM CHLORIDE 0.9% 1,000 ML in EMPTY BAG 1 BAG IV ONE (09:02)
--- NOTE | 2024-10-06 09:43 | P.PN ---
Subjective This is a pleasant 58 years old male with past medical history of multiple medical problems as below. He has history of peripheral vascular disease s/p 2 stents in his legs with Dr. Kim and history of coronary artery disease status post 2 stents in his heart with Dr. Billy. Presents because of numbness in his both lower extremity started last night associated with weakness, patient states could not move and he cannot control his legs and mainly bothering him is the numbness in both legs from the lower waist down and also in his buttocks. This is associated with cramps in his legs which hurt and him requiring pain medication. Patient denies back pain or falling. No specific GI/ symptoms. No chest pain or dyspnea. No headache dizziness or upper extremity symptoms like weakness or numbness Patient denies smoking alcohol or illicit drugs. Patient first went to [facility] and then they transferred him to this facility for higher level of care for vascular team consultation. Patient already started on heparin drip and cardiac consult was requested from ER. On reviewing the transfer records CT of the chest and abdomen and pelvis with and without contrast: Severe atherosclerotic vascular disease with complete occlusion of the infrarenal abdominal aorta and bilateral common iliac stents of uncertain chronicity. There is reconstitution of flow in bilateral external iliac arteries and the imaged femoral arteries. No thoracic or abdominal aortic aneurysm or dissection is identified. Also patient with evidence of diminishing strength decreased capillary fill in both feet and no Doppler pulses in right foot with only faintly Doppler pulses on the left foot. The doctor the vascular team at their hospital and because he is a patient of Dr. Kim patient was transferred to this facility. EKG showing sinus rhythm at [address]-T changes Creatinine 1.19. Glucose 200, potassium 3.7, sodium 141. Alcohol less than 0.01%. Troponin is negative less than 0.010. Hemoglobin 15.2, WBC 16.1. Lact ate is elevated at 5.6. INR 1.1. Of 10/06 Patient is status post aspiration thrombectomy which was mechanical and he was placed on tPA infusion bilaterally. Today postop day #1 He feels much better, the coloration and warmth improved in both lower extremity, pain is minimal and patient still has mild residual tingling. No significant weakness but his movement is restricted by the sheath in his right upper thigh. He was placed on continuous tPA infusion currently also is getting IV heparin. Risk of bleeding explained for the patient. No other new complaint in his chest and abdomen. Review of systems CONSTITUTIONAL: No fever, no malaise, no fatigue. HEENT: No recent visual problems or hearing problems. Denied any sore throat. CARDIOVASCULAR: No orthopnea, PND, no palpitations, no syncope. PULMONARY: No shortness of breath, no cough, no hemoptysis. GENITOURINARY: Denies any burning micturition, frequency, or urgency. MUSCULOSKELETAL/RHEUMATOLOGICAL: Denies any joint pain, swelling, or any muscle pain. ENDOCRINE: Denies any polyuria or polydipsia. Active Medications Generic Name Dose Route Start Last Admin Trade Name Freq PRN Reason Stop Dose Admin Alprazolam 0.25 mg 10/05/24 08:59 Alprazolam 0.25 Mg Tab PO Q6HR PRN Mild Anxiety Alprazolam 0.5 mg 10/05/24 08:59 Alprazolam 0.5 Mg Tab PO Q6HR PRN Moderate Anxiety Aspirin 325 mg 10/06/24 07:00 Aspirin 325 Mg Tab PO 10/06/24 23:00 ONCE PRN Pre-Op Atorvastatin Calcium 80 mg 10/06/24 21:00 Atorvastatin 80 Mg Tab PO HS DIVYA Ezetimibe 10 mg 10/06/24 09:00 10/06/24 08:09 Ezetimibe 10 Mg Tab PO 10 mg DAILY DIVYA Administration Hydromorphone HCl 0.5 mg 10/05/24 07:30 10/06/24 04:29 Hydromorphone 0.5 Mg/0.5 Ml Syringe IVP 0.5 mg Q3HR PRN Administration Pain Sodium Chloride 1,000 mls @ 130 mls/hr 10/05/24 04:30 10/06/24 02:32 Saline 0.9% IV 130 mls/hr .Q7H42M DIVYA Administration Alteplase, Recombinant 10 mg/ 100 mls @ 5 mls/hr 10/05/24 11:36 10/06/24 00:42 Sodium Chloride IA 0.5 mg/hr .Q20H ONE 5 mls/hr Administration Protocol 0.5 MG/HR Alteplase, Recombinant 10 mg/ 100 mls @ 5 mls/hr 10/05/24 11:37 10/06/24 00:39 Sodium Chloride IA 0.5 mg/hr .Q20H ONE 5 mls/hr Administration Protocol 0.5 MG/HR Sodium Chloride 1,000 ml/ IV 1,000 mls @ 117 mls/hr 10/06/24 08:29 10/06/24 09:02 Solution IV 10/06/24 17:01 Not Given .Q8H33M ONE 1 ML/KG/HR Heparin Sodium (Porcine) 10, 1,001 mls @ 999 mls/hr 10/07/24 07:00 000 unit/ Sodium Chloride IRRIGATION 10/07/24 23:00 ONCE PRN INTRA-OP Heparin Sodium (Porcine) 2,500 250.5 mls @ 250 mls/hr 10/07/24 07:00 unit/ Sodium Chloride IRRIGATION 10/07/24 23:00 ONCE PRN INTRA-OP Heparin Sodium/Sodium Chloride 250 mls @ 2.5 mls/hr 10/06/24 08:45 10/06/24 09:01 25,000 unit/ Sodium Chloride IV 2.5 mls/hr .Q24H DIVYA Administration Heparin Sodium/Sodium Chloride 250 mls @ 2.5 mls/hr 10/06/24 08:45 10/06/24 09:01 25,000 unit/ Sodium Chloride IV 2.5 mls/hr .Q24H DIVYA Administration Lisinopril 5 mg 10/05/24 21:00 10/06/24 08:09 Lisinopril 5 Mg Tab PO 5 mg BID DIVYA Administration Metoprolol Tartrate 50 mg 10/05/24 21:00 10/06/24 08:09 Metoprolol Tartrate 50 Mg Tab PO 50 mg BID DIVYA Administration Multivitamins 1 each 10/06/24 09:00 10/06/24 08:09 Multivitamins, Thera 1 Each Tab PO 1 each DAILY DIVYA Administration Naloxone HCl 0.2 mg 10/05/24 11:53 Naloxone 0.4 Mg/Ml 1 Ml Vial IVP Q2M PRN Opioid Reversal Zolpidem Tartrate 5 mg 10/05/24 08:59 Zolpidem 5 Mg Tab PO HS PRN Insomnia Objective - Vital Signs Vital signs: Vital Signs Temp 97.7 F 10/06/24 08:00 Pulse 62 10/06/24 09:00 Resp 17 10/06/24 09:00 BP 129/71 10/06/24 09:00 Pulse Ox 96 10/06/24 09:00 FiO2 Intake & Output 10/05/24 10/06/24 10/06/24 18:59 06:59 18:59 Intake Total 808 1500 390 Output Total 250 2300 Balance 558 -800 390 Weight 113.897 kg 117 kg Intake: IV 808 1500 390 0.9 700 1500 390 Output: Urine 250 2300 Other: Voiding Method Urinal Urinal Urinal - Exam GENERAL: The patient is alert and oriented x3, not in any acute distress. Well developed, well nourished. HEENT: Pupils are round and equally reacting to light. EOMI. No scleral icterus. No conjunctival pallor. Normocephalic, atraumatic. No pharyngeal erythema. No thyromegaly. CARDIOVASCULAR: S1 and S2 present. No murmurs, rubs, or gallops. PULMONARY: Chest is clear to auscultation, no wheezing , no crackles. ABDOMEN: Soft, nontender, nondistended, normoactive bowel sounds. No palpable organomegaly. MUSCULOSKELETAL: No joint swelling or deformity. -EXTREMITIES: No cyanosis, clubbing, or pedal edema. Improved coloration, both lower extremity are warm. NEUROLOGICAL: Gross neurological examination did not reveal any focal deficits. SKIN: No rashes. no petechiae. - Labs CBC & Chem 7: 10/06/24 05:43 10/06/24 06:00 Labs: Abnormal Lab Results - Last 24 Hours (Table) 10/05/24 10/05/24 10/05/24 Range/Units 12:51 12:51 12:51 WBC 16.6 H (3.8-10.6) k/uL Hgb 12.6 L (13.0-17.5) gm/dL Hct 37.9 L (39.0-53.0) % Neutrophils # (1.3-7.7) k/uL APTT >200.0 H* (22.0-30.0) sec Chloride (98-107) mmol/L BUN (9-20) mg/dL Glucose (74-99) mg/dL Calcium 8.2 L (8.4-10.2) mg/dL 10/05/24 10/06/24 10/06/24 Range/Units 15:30 05:43 06:00 WBC 11.5 H (3.8-10.6) k/uL Hgb 12.5 L (13.0-17.5) gm/dL Hct 37.9 L (39.0-53.0) % Neutrophils # 8.4 H (1.3-7.7) k/uL APTT 57.8 H (22.0-30.0) sec Chloride 108 H (98-107) mmol/L BUN 8 L (9-20) mg/dL Glucose 112 H (74-99) mg/dL Calcium 7.8 L (8.4-10.2) mg/dL Assessment and Plan Assessment: Bilateral lower extremity limb ischemia, severe. Secondary to complete occlusi on of the infra renal abdominal aorta and bilateral common iliac stents . S/p aspiration thrombectomy which was mechanical and he was placed on tPA infusion bilaterally Severe atherosclerotic disease Leukocytosis Coronary artery disease status post stents. Elevated lactic acid Hypertension Hyperlipidemia Plan: Continue with heparin drip Continue with TPN infusion per cardiology team recommendation Pain management Cardiology team were already on the case Patient admitted to the ICU with pulmonary/critical care team consult Labs and medication were reviewed.. Continue same treatment. Continue with symptomatic treatment. Resume home medication. Monitor labs and vitals. DVT and GI prophylaxis. Further recommendations as per clinical course of the patient DVT prophylaxis: heparin GI Prophylaxis: Pepcid PT/OT: Deferred Prognosis is guarded
--- NOTE | 2024-10-06 12:19 | P.PN ---
Subjective Progress Note Date: 10/06/24 This is a 58-year-old white male with history of coronary artery disease and previous stents placed in RCA and obtuse marginal branch. history of severe peripheral vessel occlusive disease and had previous stents to the right and left common iliac arteries back on 03/28/[address] Kim. Patient was treated with dual antiplatelet therapy, and he was also treated aggressively for cholesterol control. Patient has been doing well over the last year and a half, presented last night to [facility] in [place] and he was complaining of numbness and weakness in both lower extremities. Clearly the patient had findings of ischemia to both lower extremities. However the patient was transferred to [facility] to be evaluated by Dr. Kim. Today the patient underwent aspiration thrombectomy from the infrarenal aorta and bilateral common iliac arteries using penumbra, he also had abdominal aorta and bilateral common iliac angiograms. He had placement of the infusion catheter in the infrarenal aorta and bilateral common iliac arteries. The recommendation was to transfer the patient to the ICU after this procedure. And he will be closely monitored, he will go on the tPA infusion protocol. And will continue to monitor hemoglobin closely. May have another look by Dr. Kim in the next 24 hours. During my evaluation, the patient had no chest pain, no shor tness of breath, no cough, no wheezing, and on physical examination his feet were both cold, but not bluish in color, and he had no palpable pulses from the groin all the way down to both feet. WBC count 15.9 hemoglobin 13.8 PTT 49.5 D- dimer 0.74 electrolytes are normal renal profile is normal The patient is seen today October 06, 2024 in follow-up in the intensive care unit. He is currently resting in bed. Awake and alert in no acute distress. He is maintaining O2 saturations in the 90s on room air. He has been afebrile. Hemodynamically stable. Yesterday he had undergone an aspiration thrombectomy from the infrarenal aorta and bilateral common iliac arteries using the penumbra. Placement of infusion catheter in the infrarenal aorta and bilateral common iliac arteries. tPA is infusing per protocol. The plan is for second look around noon today. White count 11.5. Hemoglobin 12.5. Platelets 185. Fibrinogen 208. Sodium 137. Potassium 3.9. Bicarb 26. BUN 8. Creatinine 0.7 6. Glucose 112. He remains on normal saline at 130 mL/h. Objective - Vital Signs Vital signs: Vital Signs Temp 97.7 F 10/06/24 08:00 Pulse 55 L 10/06/24 10:00 Resp 19 10/06/24 10:00 BP 118/88 10/06/24 10:00 Pulse Ox 96 10/06/24 10:00 FiO2 Intake & Output 10/05/24 10/06/24 10/06/24 18:59 06:59 18:59 Intake Total 808 1500 520 Output Total 250 2300 700 Balance 558 -800 -180 Weight 113.897 kg 117 kg Intake: IV 808 1500 520 0.9 700 1500 520 Output: Urine 250 2300 700 Other: Voiding Method Urinal Urinal Urinal # Voids 1 - Exam GENERAL EXAM: Alert, very pleasant 58-year-old male, on room air, fairly comfortable in no apparent distress. HEAD: Normocephalic. EYES: Normal reaction of pupils, equal size. NOSE: Clear with pink turbinates. THROAT: No erythema or exudates. NECK: No masses, no JVD. CHEST: No chest wall deformity. LUNGS: Equal air entry with no crackles, wheeze, rhonchi or dullness. CVS: S1 and S2 normal with no audible murmur, regular rhythm. ABDOMEN: No hepatosplenomegaly, normal bowel sounds, no guarding or rigidity. SPINE: No scoliosis or deformity SKIN: No rashes CENTRAL NERVOUS SYSTEM: No focal deficits, tone is normal in all 4 extremities. EXTREMITIES: Catheter secured in place to the bilateral groins there is no peripheral edema. No clubbing, no cyanosis. Peripheral pulses are intact. - Labs CBC & Chem 7: 10/06/24 05:43 10/06/24 06:00 Labs: Abnormal Lab Results - Last 24 Hours (Table) 10/05/24 10/05/24 10/05/24 Range/Units 12:51 12:51 12:51 WBC 16.6 H (3.8-10.6) k/uL Hgb 12.6 L (13.0-17.5) gm/dL Hct 37.9 L (39.0-53.0) % Neutrophils # (1.3-7.7) k/uL APTT >200.0 H* (22.0-30.0) sec Chloride (98-107) mmol/L BUN (9-20) mg/dL Glucose (74-99) mg/dL Calcium 8.2 L (8.4-10.2) mg/dL 10/05/24 10/06/24 10/06/24 Range/Units 15:30 05:43 06:00 WBC 11.5 H (3.8-10.6) k/uL Hgb 12.5 L (13.0-17.5) gm/dL Hct 37.9 L (39.0-53.0) % Neutrophils # 8.4 H (1.3-7.7) k/uL APTT 57.8 H (22.0-30.0) sec Chloride 108 H (98-107) mmol/L BUN 8 L (9-20) mg/dL Glucose 112 H (74-99) mg/dL Calcium 7.8 L (8.4-10.2) mg/dL Assessment and Plan Assessment: Acute bilateral limb ischemia secondary to complete occlusion of the infrarenal abdominal aorta and bilateral common iliac arteries Status post aspiration thrombectomy from the infrarenal aorta and bilateral common iliac arteries using the penumbra, and placement of infusion catheter in the infrarenal aorta and bilateral common iliac arteries with tPA infusing, postoperative day #1. Plan is for a second look today around noon time History of severe peripheral vessel occlusive disease and previous bilateral iliac stenting in 2022 History of coronary artery disease and previous stents Benign essential hypertension Dyslipidemia Ex-smoker Plan: The patient was seen and evaluated Labs and medications reviewed Office Rep results reviewed Remains with tPA infusions Peripheral pulses palpable Plan is for a second look today Currently stable and on room air We will continue to follow I have personally seen and examined the patient, performed the documentation and the assessment and plan as written. Number of minutes spent on the visit: 10 Dictation was produced using [employer] dictation software. Please excuse any grammatical, word or spelling errors.
[2024-10-06] MEDS: MIDAZOLAM 2 MG/2 ML VIAL IVP ONE (12:55)
[2024-10-06] MEDS: HEPARIN SODIUM 1,000 UN/ML (10ML VL) IV ONE (13:20)
[2024-10-06] MEDS: CLOPIDOGREL 75 MG TAB PO ONE (13:21)
[2024-10-06] MEDS: HYDROmorphone 0.5 MG/0.5 ML SYRINGE IVP ONE (13:22)
[2024-10-06] MEDS: IV FLUID CONTINUATION 800 ML IV ONE (13:25)
[2024-10-06] MEDS: IOPAMIDOL-370 100ML BTL INJ ONE ×2 (13:44)
[2024-10-06] MEDS ORDERED: NALOXONE 0.4 MG/ML 1 ML VIAL IVP PRN (13:59)
--- NOTE | 2024-10-06 14:06 | P.PCN ---
Date of Procedure: 10/06/24 Operative Findings: PERCUTANEOUS PERIPHERAL INTERVENTION Performing physician Archie Michael M.D. Procedure performed 1. Successful stenting of bilateral common iliac arteries using 9.0 x 38 mm iCAST with an excellent angiographic results 2. Adjunctive use of IVUS of the aorta and bilateral common iliac arteries along with the removal of tPA infusion catheters 3. An aortogram with lower extremities runoff Indication An acute limb ischemia in this 58-year-old gentleman who was admitted to the hospital few days ago with bilateral lower extremities discomfort started 24 hours before. He underwent an angiogram and was found to have occluded infrarenal aorta and bilateral common iliac arteries. He underwent mechanical thrombectomy with removal of large thrombus burden but he still have residual thrombus burden involving the aorta and bilateral common iliac arteries. He was placed on tPA infusion regionally. He was brought today for second look angiogram Approach Bilateral common femoral arteries with previous 7 [place] sheath placed from before Complications None Level of sedation Moderate with a sedation time of 118 minutes Procedure description After obtaining informed consent the patient was brought to the cardiac Compliance Tester. The right and left femoral artery sheath were secured in place. Subsequently we exchanged the infusion catheter over a 035 wire into a 6 [place] pigtail catheter. An angiogram was performed and revealed small residual thrombus in the aorta with residual thrombus involving both iliac arteries. I did IVUS of bilateral common iliac arteries and aorta and that revealed an area of dissection involving the proximal edge of the right iliac stent with the junction of the aorta at the kissing point. At that point I decided to extend the stents few millimeter up in the aorta just below the inferior mesenteric artery. I did deploy simultaneously in a kissing technique 9 mm x 38 mm stents and there where iCAST stent well both the stent were positioned under fluoroscopy guidance with angiogram and deployed simultaneously and postdilated using 9 mm balloon. An angiogram was performed showed excellent angiographic results. I did after that bilateral lower extremities runoff which showed no evidence of high-grade stenosis involving the aortoiliac or femoropopliteal with two vessels runoff below the knee bilaterally with posterior tibial and peroneal. The procedure was completed with no complication Postprocedure management 1. Dual antiplatelet therapy for now and subsequently transition to Xarelto 2.5 mg twice daily once the sheath is removed and hemostasis achieved 2. Aggressive cholesterol control 3. Risk factors modification 4. Follow-up with the patient
--- NOTE | 2024-10-06 14:08 | IR ---
EXAMINATION TYPE: IR stent intravas non coronary DATE OF EXAM: 10/06/2024 2:00 PM COMPARISON: Pre Operative Images if available both CT/MRI or plain film CLINICAL INDICATION: Male, 58 years old with history of TPA Re-check, 9.7min fluoro, 13.218Uawc0; TECHNIQUE: IR stent intravas non coronary, multiple fluoroscopic images provided for procedure. DAP: 13.951 mGym2 Gycm2 uGym2 cGycm2 or equivalent. FINDINGS: IMPRESSION: 1. Report was generated for administrative purposes only. 2. Please see the operative/procedural note for further details. [facility], , 10/06/2024 2:05 PM
[2024-10-06] MEDS: ATORVASTATIN 80 MG TAB PO SCH (21:08)
[2024-10-07 04:39] VITALS: BP 129/67
[2024-10-07 06:13] LABS: African American GFR (CKD) >90 (>60 ml/min/1.73 sqM); Anion Gap 4 mmol/L; Blood Urea Nitrogen 9 mg/dL (9-20); Calcium 8.5 mg/dL (8.4-10.2); Carbon Dioxide 28 mmol/L (22-30); Chloride 105 mmol/L (98-107); Glucose 107 mg/dL (74-99); Non-African American GFR(CKD) >90 (>60 ml/min/1.73 sqM); Potassium 3.7 mmol/L (3.5-5.1); Sodium 137 mmol/L (137-145)
--- NOTE | 2024-10-07 06:25 | P.PN ---
Subjective Progress Note Date: 10/07/24 The patient is a pleasant 58-year-old gentleman with a past medical history significant for lower extremities PAD who was admitted to the hospital with acute limb ischemia and subsequently he underwent aspiration thrombectomy which was mechanical along with placement of tPA infusion catheters and then he underwent yesterday a second look angiogram after tPA infusion and then he underwent successful stenting of bilateral iliac arteries with extensions of previous stent to the aorta and the double barrel manner and kissing technique manner. October 07, 2024 The patient was seen and evaluated this morning. Overall he is doing well. He does have great posterior tibial pulses bilaterally and Doppler signal in the anterior tibial bilaterally. Both feet are warm. Both groins are soft and nontender with no bruises and no hematoma. With that I am going to stop the Plavix and start the patient on Xarelto 2.5 mg p.o. twice daily along with aspirin and from the cardiovascular standpoint of view, the patient can be discharged home and follow-up with Dr. Billy as an outpatient. No other cardiovascular symptoms of any pain in the chest or shortness of breath. He still have right lower extremity numbness which has been improving slowly. The physical examination is as described above in addition to regular rate and rhythm and soft systolic murmur at the right upper sternal border beside that he is slightly bradycardic mostly during the night Assessment Acute limb ischemia of bilateral lower extremities Status post mechanical thrombectomy and tPA infusion as well as stenting of bilateral iliac arteries Multiple comorbid conditions Plan Continue the current medical regimen DC Plavix and start the patient on Xarelto in addition to aspirin Consider extended length of anticoagulation and antiplatelet The patient can be discharged home Objective - Vital Signs Vital signs: Vital Signs Temp 98.4 F 10/07/24 04:00 Pulse 56 L 10/07/24 04:00 Resp 16 10/07/24 04:00 BP 129/67 10/07/24 04:00 Pulse Ox 96 10/07/24 04:00 FiO2 Intake & Output 10/06/24 10/06/24 10/07/24 06:59 18:59 06:59 Intake Total 1500 1860 1040 Output Total 2300 2300 1600 Balance -800 -440 -560 Weight 117 kg Intake: IV 1500 1860 1040 0.9 1500 1560 1040 Output: Urine 2300 2300 1600 Other: Voiding Method Urinal Urinal Urinal # Voids 3 3 - Labs CBC & Chem 7: 10/06/24 05:43 10/07/24 05:21 Labs: Abnormal Lab Results - Last 24 Hours (Table) 10/06/24 10/07/24 Range/Units 06:00 05:21 Chloride 108 H (98-107) mmol/L BUN 8 L (9-20) mg/dL Glucose 112 H 107 H (74-99) mg/dL Calcium 7.8 L (8.4-10.2) mg/dL
[2024-10-07] MEDS: RIVAROXABAN 2.5 MG TABLET PO SCH (06:48)
[2024-10-07] MEDS ORDERED: HEPARIN SODIUM,PORCINE (1 ML) 2,500 UNIT in SODIUM CHLORIDE 0.9% 250 ML IRRIGATION PRN (07:00)
[2024-10-07] MEDS ORDERED: HEPARIN SODIUM,PORCINE 10,000 UNIT in SODIUM CHLORIDE 0.9% 1,000 ML IRRIGATION PRN (07:00)
[2024-10-07] MEDS: METOPROLOL TARTRATE 25 MG TAB PO SCH (08:49)
[2024-10-07] MEDS: ASPIRIN 81 MG PO SCH (08:49)
[2024-10-07 08:56] VITALS: PULSE 82; RESP 12; TEMP 98.1
[2024-10-07] MEDS ORDERED: CLOPIDOGREL 75 MG TAB PO SCH (09:00)
--- NOTE | 2024-10-07 11:00 | P.PN ---
Subjective Progress Note Date: 10/07/24 This is a 58-year-old white male with history of coronary artery disease and previous stents placed in RCA and obtuse marginal branch. history of severe peripheral vessel occlusive disease and had previous stents to the right and left common iliac arteries back on 03/28/[address] Kim. Patient was treated with dual antiplatelet therapy, and he was also treated aggressively for cholesterol control. Patient has been doing well over the last year and a half, presented last night to [facility] in [place] and he was complaining of numbness and weakness in both lower extremities. Clearly the patient had findings of ischemia to both lower extremities. However the patient was transferred to [facility] to be evaluated by Dr. Kim. Today the patient underwent aspiration thrombectomy from the infrarenal aorta and bilateral common iliac arteries using penumbra, he also had abdominal aorta and bilateral common iliac angiograms. He had placement of the infusion catheter in the infrarenal aorta and bilateral common iliac arteries. The recommendation was to transfer the patient to the ICU after this procedure. And he will be closely monitored, he will go on the tPA infusion protocol. And will continue to monitor hemoglobin closely. May have another look by Dr. Kim in the next 24 hours. During my evaluation, the patient had no chest pain, no shor tness of breath, no cough, no wheezing, and on physical examination his feet were both cold, but not bluish in color, and he had no palpable pulses from the groin all the way down to both feet. WBC count 15.9 hemoglobin 13.8 PTT 49.5 D- dimer 0.74 electrolytes are normal renal profile is normal The patient is seen today October 06, 2024 in follow-up in the intensive care unit. He is currently resting in bed. Awake and alert in no acute distress. He is maintaining O2 saturations in the 90s on room air. He has been afebrile. Hemodynamically stable. Yesterday he had undergone an aspiration thrombectomy from the infrarenal aorta and bilateral common iliac arteries using the penumbra. Placement of infusion catheter in the infrarenal aorta and bilateral common iliac arteries. tPA is infusing per protocol. The plan is for second look around noon today. White count 11.5. Hemoglobin 12.5. Platelets 185. Fibrinogen 208. Sodium 137. Potassium 3.9. Bicarb 26. BUN 8. Creatinine 0.7 6. Glucose 112. He remains on normal saline at 130 mL/h. The patient is seen today October 07, 2024 in follow-up in the intensive care unit. He is currently awake and alert in no acute distress. Sitting up in a chair at the bedside. He denies any shortness of breath, cough or congestion. He denies any lower extremity pain or numbness. Yesterday he returned to the [employer] and had undergone successful stenting of the bilateral common iliac arteries with excellent angiographic results. tPA infusion catheters were removed. He is continued on aspirin and Xarelto. Sodium 137. Potassium 3.7. Bicarb 28. BUN 9. Creatinine 0.75. Glucose 107. Objective - Vital Signs Vital signs: Vital Signs Temp 98.1 F 10/07/24 08:00 Pulse 82 10/07/24 08:00 Resp 12 10/07/24 08:00 BP 129/67 10/07/24 04:00 Pulse Ox 93 L 10/07/24 08:00 FiO2 Intake & Output 10/06/24 10/07/24 10/07/24 18:59 06:59 18:59 Intake Total 1860 1040 Output Total 2300 1600 Balance -440 -560 Weight 115.6 kg Intake: IV 1860 1040 0.9 1560 1040 Output: Urine 2300 1600 Other: Voiding Method Urinal Urinal Toilet # Voids 3 3 1 # Bowel Movements 1 - Exam GENERAL EXAM: Alert, pleasant 58-year-old male, on room air, sitting up in a ivan ir, comfortable in no apparent distress. HEAD: Normocephalic. EYES: Normal reaction of pupils, equal size. NOSE: Clear with pink turbinates. THROAT: No erythema or exudates. NECK: No masses, no JVD. CHEST: No chest wall deformity. LUNGS: Equal air entry with no crackles, wheeze, rhonchi or dullness. CVS: S1 and S2 normal with no audible murmur, regular rhythm. ABDOMEN: No hepatosplenomegaly, normal bowel sounds, no guarding or rigidity. SPINE: No scoliosis or deformity SKIN: No rashes CENTRAL NERVOUS SYSTEM: No focal deficits, tone is normal in all 4 extremities. EXTREMITIES:There is no peripheral edema. No clubbing, no cyanosis. Peripheral pulses are intact. - Labs CBC & Chem 7: 10/06/24 05:43 10/07/24 05:21 Labs: Abnormal Lab Results - Last 24 Hours (Table) 10/07/24 Range/Units 05:21 Glucose 107 H (74-99) mg/dL Assessment and Plan Assessment: Acute bilateral limb ischemia secondary to complete occlusion of the infrarenal abdominal aorta and bilateral common iliac arteries Status post aspiration thrombectomy from the infrarenal aorta and bilateral com mon iliac arteries using the penumbra, and placement of infusion catheter in the infrarenal aorta and bilateral common iliac arteries with tPA infusing, postoperative day #2. Status post bilateral stenting to the common iliac arteries graphic results. Removal of tPA catheters. Postoperative day #1 History of severe peripheral vessel occlusive disease and previous bilateral iliac stenting in 2022 History of coronary artery disease and previous stents Benign essential hypertension Dyslipidemia Ex-smoker Plan: The patient was seen and evaluated Labs and medications reviewed [employer] results reviewed Peripheral pulses palpable Currently stable and on room air Plan is for home today I have personally seen and examined the patient, performed the documentation and the assessment and plan as written. Number of minutes spent on the visit: 10 Dictation was produced using [employer] dictation software. Please excuse any grammatical, word or spelling errors.
--- NOTE | 2024-10-08 00:52 | P.DS ---
Providers Date of admission: 10/05/24 04:27 Attending physician: Jenna Saucedo Consults: 10/05/24 04:25 Consult Physician Routine Consulting Provider: Karthik Chávez Consult Reason/Comments: acute aortic occlusion Do you want consulting provider notified?: Already Contacted Consult Physician Stat Consulting Provider: Sarah Morocho Consult Reason/Comments: icu patient Do you want consulting provider notified?: Yes Primary care physician: [facility] Hospital Course: Diagnoses: Bilateral lower extremity limb ischemia, severe. Secondary to complete occlusion of the infra renal abdominal aorta and bilateral common iliac stents . S/p aspiration thrombectomy which was mechanical and he was placed on tPA infusion bilaterally Severe atherosclerotic disease Leukocytosis Coronary artery disease status post stents. Elevated lactic acid Hypertension Hyperlipidemia Hospital course: This is a pleasant 58 years old male with past medical history of multiple medical problems as below. He has history of peripheral vascular disease s/p 2 stents in his legs with Dr. Kim and history of coronary artery disease status post 2 stents in his heart with Dr. Billy. Presents because of numbness in his both lower extremity started last night associated with weakness, CT of the chest and abdomen and pelvis with and without contrast: Severe atherosclerotic vascular disease with complete occlusion of the infrarenal abdominal aorta and bilateral common iliac stents of uncertain chronicity. There is reconstitution of flow in bilateral external iliac arteries and the imaged femoral arteries. No thoracic or abdominal aortic aneurysm or dissection is identified. Patient was placed on heparin drip. Evaluated by tavern car attendant Dr. Kim. He underwent aspiration thrombectomy which was mechanical and he was placed on tPA infusion bilaterally. This is followed with continuous heparin infusion and tPA infusion as well. Patient clinically improved significantly. Today he is moving both lower legs n ormally. No weakness, no bruise or hematoma. He still complains from mild numbness in his right feet but is improving. Patient very satisfied with the result he obtained. He is so eager to go home today. Patient was already cleared by Dr. Kim to go home. He was placed on Xarelto and aspirin. ehs manager follow-up with the patient for co-pay at was about $198 to which patient and agreed with. Risk and benefit of this medication explained to him extensively Patient denies any other new complaints Patient was cleared for discharge by all consultants including pulmonary and cardiology Problems and management plan were discussed with the patient and he verbalized understanding and acceptance Patient was found stable and can be discharged home in guarded prognosis however he needs follow-up as an outpatient. Patient was instructed to follow up with PCP Dr. Gaitan for his within one week and patient agrees Patient will instructed to follow-up with his tavern car attendant Dr. Billy and his vascular intervention tavern car attendant Dr. Kim in 1 to 2 weeks after discharge and he agrees Physical exam Gen: patient is a AAOx3, no distress CVS: S1-S2, RRR, no murmur Lungs: B/L CTA, no wheezing Abdomen: soft, no distention, no tenderness, positive bowel sounds Extremity: no leg edema or induration Time spent more than 35 minutes Patient Condition at Discharge: Critical Plan - Discharge Summary Discharge Rx Participant: Yes New Discharge Prescriptions: New Atorvastatin [Lipitor] 80 mg PO HS #30 tab Rivaroxaban [Xarelto] 2.5 mg PO BID #60 tab Metoprolol Tartrate [Lopressor] 25 mg PO BID #60 tab Continue Multivitamins, Thera [Multivitamin (formulary)] 1 tab PO DAILY lisinopriL [Zestril] 5 mg PO BID #180 tab Ezetimibe [Zetia] 10 mg PO DAILY Nature's Bounty Immune 24 Hr 1 tab PO DAILY Nitroglycerin Sl Tabs [Nitrostat] 0.4 mg SUBLINGUAL Q5M PRN tab PRN Reason: Chest Pain Aspirin 81 mg PO DAILY #30 tab Discontinued Metoprolol Tartrate [Lopressor] 50 mg PO BID #180 tab Atorvastatin [Lipitor] 40 mg PO HS Discharge Medication List Multivitamins, Thera [Multivitamin (formulary)] 1 tab PO DAILY 11/18/22 [History] Nature's Bounty Immune 24 Hr 1 tab PO DAILY 11/18/22 [History] lisinopriL [Zestril] 5 mg PO BID #180 tab 11/22/22 [Rx] Ezetimibe [Zetia] 10 mg PO DAILY 03/07/23 [History] Nitroglycerin Sl Tabs [Nitrostat] 0.4 mg SUBLINGUAL Q5M PRN tab 03/29/23 [Rx] Aspirin 81 mg PO DAILY #30 tab 10/07/24 [Rx] Atorvastatin [Lipitor] 80 mg PO HS #30 tab 10/07/24 [Rx] Metoprolol Tartrate [Lopressor] 25 mg PO BID #60 tab 10/07/24 [Rx] Rivaroxaban [Xarelto] 2.5 mg PO BID #60 tab 10/07/24 [Rx] Follow up Appointment(s)/Referral(s): Suly Billy MD [STAFF PHYSICIAN] - 1 Week Levon Martinez DO [Primary Care Provider] - 1-2 days Archie Michael MD [STAFF PHYSICIAN] - As Needed Patient Instructions/Handouts: Peripheral Vascular Stent Placement (DC) Activity/Diet/Wound Care/Special Instructions: Heart healthy diet Activity is restricted till you see your doctor Discharge Disposition: HOME SELF-CARE
== END 2024-10-07 12:48 | disposition home or self-care (01) | DRG 269 ==
LOC: EC 03:54 → 2SICU 04:27
PROVIDERS: ADMIT Hospitalist; ATTEND Hospitalist
PROC: 3E05317 Introduction of Other Thrombolytic into Peripheral Artery, Percutaneous Approach (ICD-10-PCS; 2024-10-05)
PROC: 04C03ZZ Extirpation of Matter from Abdominal Aorta, Percutaneous Approach (ICD-10-PCS; principal; 2024-10-05 09:47)
PROC: 04CD3ZZ Extirpation of Matter from Left Common Iliac Artery, Percutaneous Approach (ICD-10-PCS; 2024-10-05 09:47)
PROC: 04CC3ZZ Extirpation of Matter from Right Common Iliac Artery, Percutaneous Approach (ICD-10-PCS; 2024-10-05 09:47)
PROC: 047C34Z Dilation of Right Common Iliac Artery with Drug-eluting Intraluminal Device, Percutaneous Approach (ICD-10-PCS; 2024-10-06)
PROC: B41D1ZZ Fluoroscopy of Aorta and Bilateral Lower Extremity Arteries using Low Osmolar Contrast (ICD-10-PCS; 2024-10-06)
PROC: 047D34Z Dilation of Left Common Iliac Artery with Drug-eluting Intraluminal Device, Percutaneous Approach (ICD-10-PCS; 2024-10-06 13:25)
DX: T82.868A Thrombosis due to vascular prosthetic devices, implants and grafts, initial encounter (principal); I74.09 Other arterial embolism and thrombosis of abdominal aorta; E87.20 Acidosis, unspecified; I10 Essential (primary) hypertension; I70.223 Atherosclerosis of native arteries of extremities with rest pain, bilateral legs; I25.10 Atherosclerotic heart disease of native coronary artery without angina pectoris; D72.829 Elevated white blood cell count, unspecified; R00.1 Bradycardia, unspecified; R01.1 Cardiac murmur, unspecified; E78.5 Hyperlipidemia, unspecified; Y71.1 Therapeutic (nonsurgical) and rehabilitative cardiovascular devices associated with adverse incidents; Z95.820 Peripheral vascular angioplasty status with implants and grafts; Z95.5 Presence of coronary angioplasty implant and graft; I25.2 Old myocardial infarction; Z89.021 Acquired absence of right finger(s); Z87.891 Personal history of nicotine dependence; Z79.02 Long term (current) use of antithrombotics/antiplatelets; Z79.82 Long term (current) use of aspirin; Z79.899 Other long term (current) drug therapy; Z82.49 Family history of ischemic heart disease and other diseases of the circulatory system
CPT/HCPCS: 36415; 37184; 37185; 37214; 37221; 37252; 75625; 80048; 83605; 85025; 85027; 85384; 85610; 85730; 96365; 96366; 96375; 96376; 99291

== ENCOUNTER → 2024-10-23 | Outpatient (CLI) | payer BC ==
--- NOTE | 2024-10-23 10:34 | CT ---
EXAMINATION TYPE: CT angio abd aorta w/Runoff DATE OF EXAM: 10/23/2024 9:44 AM COMPARISON: None. CLINICAL INDICATION: Male, 58 years old with history of I73.9 PERIPHERAL VASCULAR DISEASE, UNSPECIFIE D; PHH, PVD TECHNIQUE: Multiple thin slice sub-millimeter images were obtained after administration of contrast. MIP reconstructed images and maximum intensity projection images were obtained. 3D reconstructed images and maximum intensity projection images were obtained. CT angio abd aorta w/Runoff CT Contrast: Contrast used:100 ML mL of Isovue 300 without and with IV Contrast, Oral contrast used: None CT DLP: 2590 mGycm, Automated exposure control for dose reduction was used. FINDINGS: CTA Abdomen and pelvis: The abdominal aorta does not demonstrate aneurysmal dilatation. Atherosclero tic plaque is identified within the abdominal aorta. The origins of the superior mesenteric artery, renal arteries, inferior mesenteric artery, and celiac axis are patent. Vascular calcification howeve r is present. Vascular calcifications within the iliac vessels. Stents within the iliac vessels. There is narrowing of the iliac vessels more so on the right althoug h the vessels remain patent. This may be greater on the right. Example image series 9 image 171 CTA Lower extremities: Right: The common femoral and superficial femoral arteries are patent. The popliteal artery is patent . Anterior and posterior tibial arteries as well as the peroneal artery are patent. Posterior tibial artery crosses the ankle. Anterior tibial artery is not identified beyond the trifurcation. Left: The common femoral and superficial femoral arteries are patent. The popliteal artery is patent. Anterior and posterior tibial arteries as well as the peroneal artery are patent. Anterior and poste rior tibial arteries cross the ankle. There is a flow gap on the reconstructed images. Source images appear to be patent through the superficial femoral artery. CT ABDOMEN: Liver: Normal Spleen: Normal Pancreas: Normal Adrenal glands: The adrenal glands are normal. Gallbladder: Normal Kidneys: No masses are evident. No hydronephrosis is present. No cysts are present. Delayed images were obtained through the kidneys, which remain unremarkable. Aorta: Vascular calcification is within the aorta. Inferior vena cava: Normal. CT PELVIS: Loops of bowel within the abdomen and pelvis are normal. There are changes of diverticulosis with out acute diverticulitis. Appendix: Normal as visualized. Urinary bladder: Normal. Genitourinary structures: Prostate is prominent Osseous structures: No suspicious lytic or sclerotic lesions. IMPRESSION: 1. Narrowing of the left distal common iliac artery 2. Bilateral Posterior tibial arteries are patent to the ankle. 3. Right anterior tibial artery may be occluded near its proximal portion [facility], , 10/23/2024 10:32 AM
== END | disposition home or self-care (01) ==
LOC: RADCTMAIN 08:02
PROVIDERS: ATTEND Internal Medicine Interventional Cardiology
DX: I73.9 Peripheral vascular disease, unspecified (principal)
CPT/HCPCS: 75635; Q9967